=== PATIENT | male | born 1940 | race Caucasian/White ===

== ENCOUNTER → 2017-03-21 | Outpatient (CLI) | payer MEDICARE, OTHER ==
[2016-11-23 11:32] VITALS: BP 133/87
[~2017-03-21] MED LIST: AMLO5TAB2; ASPI81TA2; CALC300T5; CRESTOR5 MG; FURO-69 PO; LINA5TAB; MAGN71.5; MYCO360T; NEBI5TAB2; OMEP20CA9; TACR0.5C4; TACR1CAP4
[2017-03-21 22:06] LABS: UR PROTEIN 10.9 mg/dL (Not Estab.)
== END | disposition home or self-care (01) ==
LOC: SPEC 09:48
PROVIDERS: ATTEND Internal Medicine Nephrology
DX: N18.3 Chronic kidney disease, stage 3 (moderate) (principal); E11.21 Type 2 diabetes mellitus with diabetic nephropathy; R60.0 Localized edema; Z68.32 Body mass index [BMI] 32.0-32.9, adult
CPT/HCPCS: 36415; 84156

== ENCOUNTER 2017-10-30 12:38 | Emergency (ER) | payer MEDICARE, OTHER ==
[~2017-10-30] VITALS: Ht 167.6 cm; Wt 87.1 kg
[~2017-10-30 12:38] MED LIST changes: +ASPI-630; -ASPI81TA2; -LINA5TAB; +LINA5TAB4; +TACR0.5C20; -TACR0.5C4
--- NOTE | 2017-10-30 13:06 | PHYS DOC ---
Past History Past Medical History: Diabetes, GERD, High Cholesterol, Hypertension, Renal Failure Past Surgical History: Knee Replacement, Other Smoking: Non-smoker Alcohol Use: None Drug Use: None Adult General Chief Complaint Chief Complaint: TREMORS HPI HPI Patient is a [77] year old [male] who presents with complaining of shaking . 77-year-old male patient with history of kidney transplant in 2007 complaining of sudden onset of generalized shaking since 11 AM today without fever, nasal congestion, chest pain, shortness of breath, focal neuro deficit, nausea vomiting. Patient states he has had cold and cough for 2 weeks that gradually improved without taking any medication. Patient states he had history of the same shaking couple years ago and admitted to the hospital with diagnosis of sepsis. Review of Systems Review of Systems Constitutional: Denies fever, reports chills Eyes: Denies change in visual acuity, redness, or eye pain [] HENT: Denies nasal congestion or sore throat [] Respiratory: Denies cough or shortness of breath [] Cardiovascular: No additional information not addressed in HPI [] GI: Denies abdominal pain, nausea, vomiting, bloody stools or diarrhea [] : Denies dysuria or hematuria [] Musculoskeletal: Denies back pain or joint pain [] Integument: Denies rash or skin lesions [] Neurologic: Denies headache, focal weakness or sensory changes [] Endocrine: Denies polyuria or polydipsia [] All other systems were reviewed and found to be within normal limits, except as documented in this note. Allergies Allergies Allergies Coded Allergies Type Severity Reaction Last Updated Verified Penicillins Allergy Unknown 02/22/14 Yes promethazine HCl Allergy Unknown 02/22/14 Yes Physical Exam Physical Exam Constitutional: Mild distress, non-toxic appearance, afebrile, generalized fine shaking [] HENT: Normocephalic, atraumatic, bilateral external ears normal, oropharynx moist, no oral exudates, nose normal. [] Eyes: PERRLA, EOMI, conjunctiva normal, no discharge. [] Neck: Normal range of motion, no tenderness, supple, no stridor. [] Cardiovascular:Heart rate regular rhythm, no murmur [] Lungs & Thorax: Mild rhonchi in right basilar Abdomen: Bowel sounds normal, soft, no tenderness, no masses, no pulsatile masses. [] Skin: Warm, dry, no erythema, no rash. [] Back: No tenderness, no CVA tenderness. [] Extremities: No tenderness, no cyanosis, no clubbing, ROM intact, no edema. [] Neurologic: Alert and oriented X 3, normal motor function, normal sensory function, no focal deficits noted. [] Psychologic: Affect normal, judgement normal, mood normal. [] EKG EKG [EKG at 1316 showed normal sinus rhythm at rate of of 84, no ST and T-wave abnormality] Radiology/Procedures Radiology/Procedures [Chest x-ray showed early infiltration in RLL Course & Med Decision Making Course & Med Decision Making Pertinent Labs and Imaging studies reviewed. (See chart for details) [Evaluation of patient in ER showed 77 year old male patient with history of kidney transplant presented with shaking. Patient did not have] fever in several checking. Labs was unremarkable including lactic acid [facility] at 1445. For mild elevation of BUN/creatinine. Chest x-ray showed infiltration in RLL. Rocephin and Zithromax was started. Patient requested transferred to [facility] and transfer accepted to [facility] at 1445. Patient had stable vitals at the time of transfer. Dragon Disclaimer Dragon Disclaimer This electronic medical record was generated, in whole or in part, using a voice recognition dictation system. Departure Departure: Impression: Primary Impression: CAP (community acquired pneumonia) Additional Impressions: Renal insufficiency History of kidney transplant Disposition: 02 XFER SHT-TRM HOSP (at 1445 to [facility]) Condition: IMPROVED Referrals: DWAYNE ASENCIO MD (PCP) Problem Qualifiers TWILA ALBERT MD Oct 30, 2017 13:06
[2017-10-30 13:34] LABS: BASO % 0 % (0-3); EOS % 0 % (0-3); HEMATOCRIT 39.6 % (39.0-53.0); HEMOGLOBIN 13.2 g/dL (13.0-17.5); LYMPH # 0.6 x10^3/uL (1.0-4.8); LYMPH % 5 % (24-48); MEAN CORPUSCULAR HEMOGLOBIN 30 pg (25-35); MEAN CORPUSCULAR HGB CONC 33 g/dL (31-37); MEAN CORPUSCULAR VOLUME 91 fL (79-100); MONO # 0.7 x10^3/uL (0.0-1.1); MONO % 6 % (0-9); NEUT # 10.4 x10^3uL (1.8-7.7); NEUT % 89 % (31-73); PLATELET COUNT 237 x10^3/uL (140-400); RED BLOOD COUNT 4.35 x10^6/uL (4.30-5.70); RED CELL DISTRIBUTION WIDTH 15.2 % (11.5-14.5); WHITE BLOOD COUNT 11.7 x10^3/uL (4.0-11.0)
[2017-10-30 13:42] LABS: BACTERIA,URINE 0 /HPF (0-FEW); BILIRUBIN,URINE NEG (NEG); CLARITY,URINE CLEAR; COLOR,URINE STRAW; GLUCOSE,URINE NEG (NEG); NITRITE,URINE NEG (NEG); UROBILINOGEN,URINE 0.2 mg/dL (0.2 mg/dL); WBC,URINE OCC /HPF (0-4)
[2017-10-30 13:43] LABS: SQUAMOUS EPITHELIAL CELL,UR OCC /LPF
--- NOTE | 2017-10-30 13:48 | RAD ---
CHEST PA LATERAL Clinical Indication: Shaking, weakness. Comparison: January 22, 2014 Technique: Frontal and lateral views of the chest are obtained. Findings: Groundglass, right perihilar and infrahilar opacities are present. Remainder of the lungs are clear. No pleural effusion or pneumothorax is seen. Cardiomediastinal silhouette remains within normal limits of size. Atherosclerotic calcification of the aortic knob redemonstrated. Visualized osseous structures and overlying soft tissues demonstrate no acute interval change, with prominent glenohumeral degenerative changes present. IMPRESSION: Right hilar and infrahilar groundglass opacities, may represent early infiltrate.
[2017-10-30 13:54] LABS: ALBUMIN 3.7 g/dL (3.4-5.0); ALBUMIN/GLOBULIN RATIO 0.7 (1.0-1.7); CALCIUM 9.3 mg/dL (8.5-10.1); CREATININE 2.1 mg/dL (0.7-1.3); GFR 30.9; TOTAL PROTEIN 8.7 g/dL (6.4-8.2)
[2017-10-30 13:57] LABS: INFLUENZA A PATIENT NEGATIVE (NEGATIVE); INFLUENZA B PATIENT NEGATIVE (NEGATIVE)
[2017-10-30] MEDS ORDERED: AZITHROMYCIN 500 MG in IV NORMAL SALINE 250ML 250 ML IV ONE (14:15)
[2017-10-30] MEDS ORDERED: IV NORMAL SALINE 1,000ML 1,000 ML IV ONE (14:15)
[2017-10-30 14:24] VITALS: BP 129/70
[2017-10-30] MEDS ORDERED: IV NORMAL SALINE 50ML 50 ML ONE (14:26)
[2017-10-30] MEDS ORDERED: cefTRIAXone SODIUM 1 GM VIAL IV ONE (14:26)
[2017-10-30] MEDS ORDERED: IV NORMAL SALINE 250ML 250 ML ONE (15:04)
[2017-10-30] MEDS ORDERED: AZITHROMYCIN 500 MG VIAL. IV ONE (15:05)
--- NOTE | 2017-10-30 17:16 | EKG ---
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
== END 2017-10-30 15:45 | disposition short-term general hospital (02) ==
LOC: ER 12:38
DX: J18.9 Pneumonia, unspecified organism (principal); I12.9 Hypertensive chronic kidney disease with stage 1 through stage 4 chronic kidney disease, or unspecified chronic kidney disease; E11.22 Type 2 diabetes mellitus with diabetic chronic kidney disease; N18.9 Chronic kidney disease, unspecified; K21.9 Gastro-esophageal reflux disease without esophagitis; E78.00 Pure hypercholesterolemia, unspecified; Z94.0 Kidney transplant status; Z88.0 Allergy status to penicillin; Z88.8 Allergy status to other drugs, medicaments and biological substances
CPT/HCPCS: 36415; 71020; 80053; 81001; 83605; 83880; 84484; 85025; 85610; 87040; 87804; 93005; 96365; 96368; 99285; J0456; J0696; J7050; J7030

== ENCOUNTER → 2017-11-03 | Outpatient (CLI) | payer MEDICARE, OTHER ==
[2017-10-30 14:24] VITALS: BP 129/70
[2017-11-03 21:07] LABS: UR CREATININE RD 43.7 mg/dL (Not Estab.); UR PROTEIN RD 19.8 mg/dL (Not Estab.)
== END | disposition home or self-care (01) ==
LOC: LAB 06:01
PROVIDERS: ATTEND Transplant Surgery
DX: I12.9 Hypertensive chronic kidney disease with stage 1 through stage 4 chronic kidney disease, or unspecified chronic kidney disease (principal); E11.22 Type 2 diabetes mellitus with diabetic chronic kidney disease; N18.3 Chronic kidney disease, stage 3 (moderate); Z79.899 Other long term (current) drug therapy; Z94.0 Kidney transplant status
CPT/HCPCS: 36415; 80061; 82570; 84156

== ENCOUNTER → 2018-08-12 | Outpatient (CLI) | payer MEDICARE, OTHER ==
[~2018-08-12] MED LIST changes: -AMLO5TAB2; +AMLO5TAB7
[2018-08-12 06:51] LABS: ALBUMIN 3.2 g/dL (3.4-5.0); ALBUMIN/GLOBULIN RATIO 0.8 (1.0-1.7); CALCIUM 8.3 mg/dL (8.5-10.1); CREATININE 2.1 mg/dL (0.7-1.3); GFR 30.9; MAGNESIUM 1.8 mg/dL (1.8-2.4); PHOSPHORUS 3.9 mg/dL (2.6-4.7); POTASSIUM 3.7 mmol/L (3.5-5.1); TOTAL BILIRUBIN 0.7 mg/dL (0.2-1.0); TOTAL PROTEIN 7.4 g/dL (6.4-8.2)
[2018-08-12 06:58] LABS: BASO % 1 % (0-3); EOS # 0.2 x10^3/uL (0.0-0.7); EOS % 2 % (0-3); HEMATOCRIT 37.1 % (39.0-53.0); HEMOGLOBIN 12.2 g/dL (13.0-17.5); LYMPH # 1.4 x10^3/uL (1.0-4.8); LYMPH % 21 % (24-48); MEAN CORPUSCULAR HEMOGLOBIN 30 pg (25-35); MEAN CORPUSCULAR HGB CONC 33 g/dL (31-37); MEAN CORPUSCULAR VOLUME 91 fL (79-100); MONO # 0.6 x10^3/uL (0.0-1.1); MONO % 10 % (0-9); NEUT # 4.2 x10^3uL (1.8-7.7); NEUT % 66 % (31-73); PLATELET COUNT 241 x10^3/uL (140-400); RED BLOOD COUNT 4.06 x10^6/uL (4.30-5.70); RED CELL DISTRIBUTION WIDTH 15.2 % (11.5-14.5); WHITE BLOOD COUNT 6.4 x10^3/uL (4.0-11.0)
== END | disposition home or self-care (01) ==
LOC: LAB 06:04
PROVIDERS: ATTEND Transplant Surgery
DX: Z48.22 Encounter for aftercare following kidney transplant (principal); E83.40 Disorders of magnesium metabolism, unspecified; E83.30 Disorder of phosphorus metabolism, unspecified; E78.00 Pure hypercholesterolemia, unspecified; I12.9 Hypertensive chronic kidney disease with stage 1 through stage 4 chronic kidney disease, or unspecified chronic kidney disease; E11.22 Type 2 diabetes mellitus with diabetic chronic kidney disease; N18.3 Chronic kidney disease, stage 3 (moderate); K21.9 Gastro-esophageal reflux disease without esophagitis; Z94.0 Kidney transplant status; Z79.899 Other long term (current) drug therapy
CPT/HCPCS: 36415; 80053; 80197; 83615; 83735; 84100; 85025

== ENCOUNTER → 2018-10-26 | Outpatient (CLI) | payer MEDICARE, OTHER ==
[2018-10-26 06:59] LABS: ALBUMIN 3.1 g/dL (3.4-5.0); ALBUMIN/GLOBULIN RATIO 0.7 (1.0-1.7); CALCIUM 8.4 mg/dL (8.5-10.1); CREATININE 1.9 mg/dL (0.7-1.3); GFR 34.5; POTASSIUM 3.7 mmol/L (3.5-5.1); TOTAL BILIRUBIN 0.5 mg/dL (0.2-1.0); TOTAL PROTEIN 7.3 g/dL (6.4-8.2)
== END | disposition home or self-care (01) ==
LOC: LAB 06:04
PROVIDERS: ATTEND Nurse Practitioner
DX: E78.5 Hyperlipidemia, unspecified (principal)
CPT/HCPCS: 36415; 80053; 80061

== ENCOUNTER → 2019-03-22 | Outpatient (CLI) | payer MEDICARE, OTHER ==
[~2019-03-22] MED LIST changes: +AMLO5TAB10; -AMLO5TAB7
[2019-03-22 06:54] LABS: CALCIUM 8.8 mg/dL (8.5-10.1); CREATININE 2.1 mg/dL (0.7-1.3); GFR 30.8
== END | disposition home or self-care (01) ==
LOC: LAB 06:14
PROVIDERS: ATTEND Nurse Practitioner
DX: E78.5 Hyperlipidemia, unspecified (principal); R60.0 Localized edema
CPT/HCPCS: 36415; 80048; 83880

== ENCOUNTER → 2019-07-05 | Outpatient (CLI) | payer MEDICARE, OTHER ==
[~2019-07-05] MED LIST changes: +OMEP20CA10; -OMEP20CA9
[2019-07-05 06:22] LABS: CALCIUM 8.8 mg/dL (8.5-10.1); CREATININE 2.1 mg/dL (0.7-1.3); GFR 30.8; POTASSIUM 3.5 mmol/L (3.5-5.1)
[2019-07-05 07:11] LABS: BASO % 0 % (0-3); EOS # 0.2 x10^3/uL (0.0-0.7); EOS % 2 % (0-3); HEMATOCRIT 36.9 % (39.0-53.0); HEMOGLOBIN 11.9 g/dL (13.0-17.5); LYMPH # 0.9 x10^3/uL (1.0-4.8); LYMPH % 13 % (24-48); MEAN CORPUSCULAR HEMOGLOBIN 30 pg (25-35); MEAN CORPUSCULAR HGB CONC 32 g/dL (31-37); MEAN CORPUSCULAR VOLUME 92 fL (79-100); MONO # 0.7 x10^3/uL (0.0-1.1); MONO % 10 % (0-9); NEUT # 5.2 x10^3uL (1.8-7.7); NEUT % 74 % (31-73); PLATELET COUNT 214 x10^3/uL (140-400); RED BLOOD COUNT 4.02 x10^6/uL (4.30-5.70)
== END | disposition home or self-care (01) ==
LOC: LAB 05:56
PROVIDERS: ATTEND Internal Medicine
DX: T86.10 Unspecified complication of kidney transplant (principal); Z79.899 Other long term (current) drug therapy; Y83.0 Surgical operation with transplant of whole organ as the cause of abnormal reaction of the patient, or of later complication, without mention of misadventure at the time of the procedure
CPT/HCPCS: 36415; 80048; 80197; 85025

== ENCOUNTER 2019-10-07 20:46 | Emergency (ER) | payer MEDICARE, OTHER ==
[~2019-10-07] VITALS: Ht 167.6 cm; Wt 90.7 kg
[2019-10-07] MEDS ORDERED: DEXAMETHASONE SOD PHOS 4 MG/ML VIAL IVP ONE (21:30)
[2019-10-07 21:40] VITALS: BP 135/69
[2019-10-07 21:49] LABS: BASO % 1 % (0-3); EOS # 0.2 x10^3/uL (0.0-0.7); EOS % 3 % (0-3); HEMATOCRIT 35.4 % (39.0-53.0); HEMOGLOBIN 11.7 g/dL (13.0-17.5); LYMPH # 1.2 x10^3/uL (1.0-4.8); LYMPH % 15 % (24-48); MEAN CORPUSCULAR HEMOGLOBIN 30 pg (25-35); MEAN CORPUSCULAR HGB CONC 33 g/dL (31-37); MEAN CORPUSCULAR VOLUME 92 fL (79-100); MONO # 0.9 x10^3/uL (0.0-1.1); MONO % 11 % (0-9); NEUT # 5.7 x10^3uL (1.8-7.7); NEUT % 71 % (31-73); PLATELET COUNT 202 x10^3/uL (140-400); RED BLOOD COUNT 3.85 x10^6/uL (4.30-5.70); RED CELL DISTRIBUTION WIDTH 15.6 % (11.5-14.5); WHITE BLOOD COUNT 8.1 x10^3/uL (4.0-11.0)
[2019-10-07 22:33] LABS: ALBUMIN 3.1 g/dL (3.4-5.0); ALBUMIN/GLOBULIN RATIO 0.8 (1.0-1.7); C REACTIVE PROTEIN 4.6 mg/L (0-3.3); CALCIUM 7.9 mg/dL (8.5-10.1); CREATININE 2.1 mg/dL (0.7-1.3); GFR 30.7; MAGNESIUM 1.9 mg/dL (1.8-2.4); POTASSIUM 3.6 mmol/L (3.5-5.1); TOTAL BILIRUBIN 0.4 mg/dL (0.2-1.0); TOTAL PROTEIN 6.9 g/dL (6.4-8.2); URIC ACID 6.7 mg/dL (3.5-7.2)
[2019-10-07 22:54] LABS: SEDIMENTATION RATE 57 (0-15)
--- NOTE | 2019-10-07 22:54 | RAD ---
EXAM: 3 views right elbow DATE: 10/07/2019 9:13 PM INDICATION: Right elbow pain, no known injury. COMPARISON: No Prior FINDINGS/ IMPRESSION: 1. Moderate elbow joint effusion. 2. Right elbow joint osteoarthritis. 3. Decreased bone mineral density. 4. Mild soft tissue swelling overlying the olecranon. Electronically signed by: Jose Roberto Zimmer MD (10/07/2019 10:51 PM) [facility]
[2019-10-07] MEDS ORDERED: PRED20TA PO (23:05)
[2019-10-07] MEDS ORDERED: SENN-121 PO (23:05)
[2019-10-07] MEDS ORDERED: HYDR-3165 PO (23:05)
--- NOTE | 2019-10-07 23:06 | PHYS DOC ---
Past History Past Medical History: Diabetes, GERD, High Cholesterol, Hypertension, Renal Failure Past Surgical History: Knee Replacement, Other Additional Past Surgical Histo: KIDNEY TRANSPLANT Smoking: Quit Greater Than 1 Year Alcohol Use: None Drug Use: None Adult General Chief Complaint Chief Complaint: UPPER EXTREMITY PAIN HPI HPI 79-year-old male presents with 2 day history of right elbow pain. Patient repor ts has become worse over the last 2 hours. Patient denies known trauma. Reports he caused sling is using his arm. Reports concern for possible infectious process. Reports history of prior infections to bilateral arms which required surgical incision and debridement. Denies any fever or chills. Denies redness. Reports some swelling to right hand. Denies history of DVT. Denies chest pain. Reports taking Tylenol at 0800 this morning without significant improvement. Review of Systems Review of Systems Constitutional: Denies fever or chills Eyes: Denies redness or eye pain HENT: Denies nasal congestion or sore throat Respiratory: Denies cough or shortness of breath Cardiovascular: Denies chest pain or palpitations GI: Denies abdominal pain, nausea, or vomiting : Denies dysuria or hematuria Musculoskeletal: Reports right elbow pain; reports right hand swelling Integument: Denies rash or skin lesions Neurologic: Denies headache, focal weakness or sensory changes Complete systems were reviewed and found to be within normal limits, except as documented in this note. Current Medications Current Medications Current Medications Medications (Trade) Dose Ordered Sig/Zaki Start Time Stop Time Status Last Admin Dose Admin Dexamethasone Sodium Phosphate (Decadron) 10 mg 1X ONCE 10/07/19 21:30 10/07/19 21:31 DC 10/07/19 21:37 10 MG Fentanyl Citrate (Fentanyl 2ml Vial) 50 mcg 1X ONCE 10/07/19 22:30 10/07/19 22:31 DC 10/07/19 22:06 50 MCG Allergies Allergies Allergies Coded Allergies Type Severity Reaction Last Updated Verified Penicillins Allergy Unknown 02/22/14 Yes promethazine HCl Allergy Unknown 02/22/14 Yes Physical Exam Physical Exam Constitutional: Well developed, well nourished, uncomfortable, non-toxic appeara nce HENT: Normocephalic, atraumatic, oropharynx moist Eyes: Conjunctiva normal, no discharge Neck: Normal range of motion, no tenderness, supple Cardiovascular: Heart rate normal, regular rhythm Lungs & Thorax: Bilateral breath sounds clear to auscultation, no wheezing Skin: Warm, dry, no erythema, no rash Extremities: Right elbow tenderness and swelling to the olecranon, ROM diminished secondary to pain, trace edema to right hand, Refill less than 2 seconds, right radial pulses +2 Neurologic: Alert and oriented X 3, no focal deficits noted Psychologic: Affect normal, judgement normal, Current Patient Data Vital Signs Vital Signs Date Time Temp Pulse Resp B/P (MAP) Pulse Ox O2 Delivery O2 Flow Rate FiO2 10/07/19 21:40 83 20 135/69 (91) 97 Room Air 10/07/19 20:55 98.4 Lab Results Laboratory Tests Test 10/07/19 21:25 10/07/19 22:14 White Blood Count 8.1 x10^3/uL (4.0-11.0) Red Blood Count 3.85 x10^6/uL (4.30-5.70) L Hemoglobin 11.7 g/dL (13.0-17.5) L Hematocrit 35.4 % (39.0-53.0) L Mean Corpuscular Volume 92 fL (79-100) Mean Corpuscular Hemoglobin 30 pg (25-35) Mean Corpuscular Hemoglobin Concent 33 g/dL (31-37) Red Cell Distribution Width 15.6 % (11.5-14.5) H Platelet Count 202 x10^3/uL (140-400) Neutrophils (%) (Auto) 71 % (31-73) Lymphocytes (%) (Auto) 15 % (24-48) L Monocytes (%) (Auto) 11 % (0-9) H Eosinophils (%) (Auto) 3 % (0-3) Basophils (%) (Auto) 1 % (0-3) Neutrophils # (Auto) 5.7 x10^3uL (1.8-7.7) Lymphocytes # (Auto) 1.2 x10^3/uL (1.0-4.8) Monocytes # (Auto) 0.9 x10^3/uL (0.0-1.1) Eosinophils # (Auto) 0.2 x10^3/uL (0.0-0.7) Basophils # (Auto) 0.0 x10^3/uL (0.0-0.2) Erythrocyte Sedimentation Rate 57 (0-15) H Prothrombin Time 10.8 SEC (9.4-11.4) Prothrombin Time INR 1.0 (0.9-1.1) Activated Partial Thromboplast Time 28 SEC (23-33) Lactic Acid Level 0.7 mmol/L (0.4-2.0) Sodium Level 138 mmol/L (136-145) Potassium Level 3.6 mmol/L (3.5-5.1) Chloride Level 103 mmol/L (98-107) Carbon Dioxide Level 23 mmol/L (21-32) Anion Gap 12 (6-14) Blood Urea Nitrogen 36 mg/dL (8-26) H Creatinine 2.1 mg/dL (0.7-1.3) H Estimated GFR (Cockcroft-Gault) 30.7 BUN/Creatinine Ratio 17 (6-20) Glucose Level 222 mg/dL (70-99) H Uric Acid 6.7 mg/dL (3.5-7.2) Calcium Level 7.9 mg/dL (8.5-10.1) L Magnesium Level 1.9 mg/dL (1.8-2.4) Total Bilirubin 0.4 mg/dL (0.2-1.0) Aspartate Amino Transferase (AST) 15 U/L (15-37) Alanine Aminotransferase (ALT) 14 U/L (16-63) L Alkaline Phosphatase 86 U/L (46-116) C-Reactive Protein 4.6 mg/L (0-3.3) H Total Protein 6.9 g/dL (6.4-8.2) Albumin 3.1 g/dL (3.4-5.0) L Albumin/Globulin Ratio 0.8 (1.0-1.7) L EKG EKG [] Radiology/Procedures Radiology/Procedures PROCEDURE: VENOUS UPPER EXTREMITY RIGHT VENOUS UPPER EXTREMITY RIGHT History: Pain and swelling. Comparison: None. Procedure: Color flow Doppler, Doppler spectral analysis, and 2D images are obtained with and without compression in the jugular vein, subclavian vein, axillary vein, brachial vein, radial vein, ulnar vein, and basilic and cephalic veins. Findings: There is normal color flow, augmentation, and compressibility of all visualized vein segments. No evidence of deep venous thrombus is present. Irregular fluid collection adjacent to the elbow measures 4.2 x 1.6 x 2.4 cm. IMPRESSION: 1. No evidence of right upper extremity deep venous thrombosis. 2. Irregular nonspecific fluid collection within the soft tissues adjacent to the elbow. Recommend correlation for infection to exclude abscess. Electronically signed by: Zack Castro DO (10/07/2019 11:24 PM) [facility] [place] PROCEDURE: ELBOW RIGHT 3V EXAM: 3 views right elbow DATE: 10/07/2019 9:13 PM INDICATION: Right elbow pain, no known injury. COMPARISON: No Prior FINDINGS/ IMPRESSION: 1. Moderate elbow joint effusion. 2. Right elbow joint osteoarthritis. 3. Decreased bone mineral density. 4. Mild soft tissue swelling overlying the olecranon. Electronically signed by: Jose Roberto Zimmer MD (10/07/2019 10:51 PM) [facility] [place] Course & Med Decision Making Course & Med Decision Making Pertinent Labs and Imaging studies reviewed. (See chart for details) Patient presents with right elbow pain and swelling. X-ray obtained with findings consistent for joint effusion. Osteoarthritis also appreciated. Venous Doppler negative for DVT. Soft tissue swelling appreciated likely joint effusion. Labs obtained and posted to chart. WBC and lactic acid within normal limits. ESR and CRP elevated. Uric acid negative. Andrez bandages applied and sling provided. Pain addressed. Patient stable for discharge with outpatient follow-up with PCP/orthopedic surgeon. Orthopedic referral provided. Discussed findings and plan with patient and family, who acknowledge understanding and agreement. Dragon Disclaimer Dragon Disclaimer This electronic medical record was generated, in whole or in part, using a voice recognition dictation system. Splinting Splinting : Location: right elbow Pre-Made Type: Andrez bandage and sling Pre-Proc Neuro Vasc Exam: normal Post-Proc Neuro Vasc Exam: normal, unchanged from pre-exam Departure Departure: Impression: Primary Impression: Elbow pain, right Additional Impressions: Osteoarthritis Joint effusion of elbow Disposition: 01 HOME, SELF-CARE Condition: STABLE Referrals: DWAYNE ASENCIO MD (PCP) TANYA PAGAN MD Patient Instructions: Elbow Effusion-Brief, Osteoarthritis Scripts Hydrocodone Bit/Acetaminophen (NORCO 5-325 TABLET) 1 Each Tablet 0.5-1 TAB PO Q6HRS PRN for PAIN, #14 TAB Prov: MANUEL PORTER DO 10/07/19 Sennosides/Docusate Sodium (Colace 2-in-1 Tablet) 1 Each Tablet 1 TAB PO QHS PRN for CONSTIPATION, #30 TAB 0 Refills Prov: MANUEL PORTER DO 10/07/19 Prednisone (PREDNISONE) 20 Mg Tablet 2 TAB PO DAILY for Arthritis, #8 TAB Start this prescription tomorrow, Wednesday10/08/19 Prov: MANUEL PORTER DO 10/07/19 Problem Qualifiers Additional Impressions: Osteoarthritis Osteoarthritis location: elbow Osteoarthritis type: unspecified Laterality: right Qualified Codes: M19.021 - Primary osteoarthritis, right elbow Joint effusion of elbow Laterality: right Qualified Codes: M25.421 - Effusion, right elbow MANUEL PORTER DO Oct 07, 2019 23:05
--- NOTE | 2019-10-07 23:26 | RAD ---
VENOUS UPPER EXTREMITY RIGHT History: Pain and swelling. Comparison: None. Procedure: Color flow Doppler, Doppler spectral analysis, and 2D images are obtained with and without compression in the jugular vein, subclavian vein, axillary vein, brachial vein, radial vein, ulnar vein, and basilic and cephalic veins. Findings: There is normal color flow, augmentation, and compressibility of all visualized vein segments. No evidence of deep venous thrombus is present. Irregular fluid collection adjacent to the elbow measures 4.2 x 1.6 x 2.4 cm. IMPRESSION: 1. No evidence of right upper extremity deep venous thrombosis. 2. Irregular nonspecific fluid collection within the soft tissues adjacent to the elbow. Recommend correlation for infection to exclude abscess. Electronically signed by: Zack Castro DO (10/07/2019 11:24 PM) [facility]
[2019-10-07] MEDS ORDERED: HYDROcodone/APAP 5/325MG 1 TAB TABLET PO ONE (23:30)
== END 2019-10-07 23:20 | disposition home or self-care (01) ==
LOC: ER 20:46
DX: M19.021 Primary osteoarthritis, right elbow (principal); M25.421 Effusion, right elbow; E11.9 Type 2 diabetes mellitus without complications; K21.9 Gastro-esophageal reflux disease without esophagitis; E78.00 Pure hypercholesterolemia, unspecified; I10 Essential (primary) hypertension; Z87.891 Personal history of nicotine dependence; Z88.0 Allergy status to penicillin; Z88.8 Allergy status to other drugs, medicaments and biological substances
CPT/HCPCS: 36415; 73080; 80053; 83605; 83735; 84550; 85025; 85610; 85651; 85730; 86140; 93971; 96374; 96375; 96376; 99285; J1100; J3010

== ENCOUNTER → 2020-06-19 | Outpatient (CLI) | payer MEDICARE, OTHER ==
[~2020-06-19] MED LIST changes: +HYDR-3165 PO; -OMEP20CA10; +OMEP20CA16; +PRED20TA PO; +SENN-121 PO; -TACR1CAP4; +TACR1CAP5
[2020-06-19 06:33] LABS: BASO % 1 % (0-3); EOS # 0.2 x10^3/uL (0.0-0.7); EOS % 4 % (0-3); HEMATOCRIT 37.1 % (39.0-53.0); HEMOGLOBIN 12.2 g/dL (13.0-17.5); LYMPH # 1.1 x10^3/uL (1.0-4.8); LYMPH % 21 % (24-48); MEAN CORPUSCULAR HEMOGLOBIN 30 pg (25-35); MEAN CORPUSCULAR HGB CONC 33 g/dL (31-37); MEAN CORPUSCULAR VOLUME 93 fL (79-100); MONO # 0.5 x10^3/uL (0.0-1.1); MONO % 10 % (0-9); NEUT # 3.5 x10^3uL (1.8-7.7); NEUT % 66 % (31-73); PLATELET COUNT 193 x10^3/uL (140-400); RED BLOOD COUNT 4.01 x10^6/uL (4.30-5.70); RED CELL DISTRIBUTION WIDTH 15.2 % (11.5-14.5); WHITE BLOOD COUNT 5.3 x10^3/uL (4.0-11.0)
[2020-06-19 06:44] LABS: ALBUMIN 3.3 g/dL (3.4-5.0); ALBUMIN/GLOBULIN RATIO 0.8 (1.0-1.7); CALCIUM 8.6 mg/dL (8.5-10.1); CREATININE 2.2 mg/dL (0.7-1.3); GFR 29.1; MAGNESIUM 1.9 mg/dL (1.8-2.4); PHOSPHORUS 4.3 mg/dL (2.6-4.7); TOTAL BILIRUBIN 0.6 mg/dL (0.2-1.0); TOTAL PROTEIN 7.3 g/dL (6.4-8.2)
== END ==
LOC: LAB 06:10
PROVIDERS: ATTEND Internal Medicine
DX: E83.40 Disorders of magnesium metabolism, unspecified (principal); E83.30 Disorder of phosphorus metabolism, unspecified; Z94.0 Kidney transplant status; Z79.899 Other long term (current) drug therapy
CPT/HCPCS: 36415; 80053; 80197; 83615; 83735; 84100; 85025

== ENCOUNTER → 2020-08-09 | Outpatient (CLI) | payer MEDICARE, OTHER ==
[2020-08-09 07:27] LABS: BASO % 0 % (0-3); EOS # 0.2 x10^3/uL (0.0-0.7); EOS % 3 % (0-3); HEMATOCRIT 37.8 % (39.0-53.0); HEMOGLOBIN 12.3 g/dL (13.0-17.5); LYMPH # 0.9 x10^3/uL (1.0-4.8); LYMPH % 15 % (24-48); MEAN CORPUSCULAR HEMOGLOBIN 31 pg (25-35); MEAN CORPUSCULAR HGB CONC 33 g/dL (31-37); MEAN CORPUSCULAR VOLUME 94 fL (79-100); MONO # 0.5 x10^3/uL (0.0-1.1); MONO % 9 % (0-9); NEUT # 4.5 x10^3uL (1.8-7.7); NEUT % 73 % (31-73); PLATELET COUNT 195 x10^3/uL (140-400); RED BLOOD COUNT 4.03 x10^6/uL (4.30-5.70); RED CELL DISTRIBUTION WIDTH 15.3 % (11.5-14.5); WHITE BLOOD COUNT 6.2 x10^3/uL (4.0-11.0)
[2020-08-09 07:37] LABS: ALBUMIN 3.2 g/dL (3.4-5.0); ALBUMIN/GLOBULIN RATIO 0.8 (1.0-1.7); CALCIUM 8.6 mg/dL (8.5-10.1); CREATININE 1.9 mg/dL (0.7-1.3); GFR 34.5; PHOSPHORUS 3.5 mg/dL (2.6-4.7); POTASSIUM 4.1 mmol/L (3.5-5.1); TOTAL BILIRUBIN 0.6 mg/dL (0.2-1.0); TOTAL PROTEIN 7.2 g/dL (6.4-8.2)
== END | disposition home or self-care (01) ==
LOC: LAB 07:03
PROVIDERS: ATTEND Internal Medicine
DX: E83.30 Disorder of phosphorus metabolism, unspecified (principal); E83.40 Disorders of magnesium metabolism, unspecified; Z94.0 Kidney transplant status; Z79.899 Other long term (current) drug therapy
CPT/HCPCS: 80053; 80197; 83615; 83735; 84100; 85025

== ENCOUNTER → 2020-09-19 | Outpatient (CLI) | payer MEDICARE, OTHER ==
[~2020-09-19] MED LIST changes: +AMLO-186; -AMLO5TAB10
[2020-09-19 08:06] LABS: BASO % 0 % (0-3); EOS # 0.1 x10^3/uL (0.0-0.7); EOS % 2 % (0-3); HEMATOCRIT 39.2 % (39.0-53.0); HEMOGLOBIN 12.5 g/dL (13.0-17.5); LYMPH # 0.9 x10^3/uL (1.0-4.8); LYMPH % 15 % (24-48); MEAN CORPUSCULAR HEMOGLOBIN 30 pg (25-35); MEAN CORPUSCULAR HGB CONC 32 g/dL (31-37); MEAN CORPUSCULAR VOLUME 93 fL (79-100); MONO # 0.5 x10^3/uL (0.0-1.1); MONO % 9 % (0-9); NEUT # 4.3 x10^3uL (1.8-7.7); NEUT % 74 % (31-73); PLATELET COUNT 195 x10^3/uL (140-400); RED BLOOD COUNT 4.23 x10^6/uL (4.30-5.70); RED CELL DISTRIBUTION WIDTH 14.9 % (11.5-14.5); WHITE BLOOD COUNT 5.8 x10^3/uL (4.0-11.0)
[2020-09-19 08:18] LABS: ALBUMIN 3.5 g/dL (3.4-5.0); ALBUMIN/GLOBULIN RATIO 0.9 (1.0-1.7); CALCIUM 8.9 mg/dL (8.5-10.1); CREATININE 2.3 mg/dL (0.7-1.3); GFR 27.6; PHOSPHORUS 3.6 mg/dL (2.6-4.7); POTASSIUM 3.9 mmol/L (3.5-5.1); TOTAL BILIRUBIN 0.6 mg/dL (0.2-1.0); TOTAL PROTEIN 7.4 g/dL (6.4-8.2)
== END ==
LOC: LAB 07:27
PROVIDERS: ATTEND Internal Medicine
DX: E83.30 Disorder of phosphorus metabolism, unspecified (principal); Z79.899 Other long term (current) drug therapy; Z94.0 Kidney transplant status
CPT/HCPCS: 80053; 80197; 83615; 83735; 84100; 85025

== ENCOUNTER → 2020-10-07 | Outpatient (CLI) | payer MEDICARE, OTHER | LOC: LAB 07:12 | PROVIDERS: ATTEND Nurse Practitioner | DX: E78.5 Hyperlipidemia, unspecified (principal) | CPT/HCPCS: 80061 ==

== ENCOUNTER → 2020-10-07 | Outpatient (CLI) | payer MEDICARE, OTHER ==
[2020-10-07 09:42] LABS: ALBUMIN 3.3 g/dL (3.4-5.0); CALCIUM 8.8 mg/dL (8.5-10.1); GFR 32.4; MAGNESIUM 1.9 mg/dL (1.8-2.4); PHOSPHORUS 4.7 mg/dL (2.6-4.7); POTASSIUM 3.7 mmol/L (3.5-5.1)
== END ==
LOC: LAB 07:30
PROVIDERS: ATTEND Internal Medicine
DX: E11.29 Type 2 diabetes mellitus with other diabetic kidney complication (principal); I10 Essential (primary) hypertension; R60.0 Localized edema; Z94.0 Kidney transplant status; Z48.22 Encounter for aftercare following kidney transplant
CPT/HCPCS: 36415; 80069; 83735

== ENCOUNTER → 2020-10-07 | Outpatient (CLI) | payer MEDICARE, OTHER ==
[~2020-10-07] MED LIST changes: -AMLO-186; +AMLO-186 PO; +ATOR20TA58 PO; -CALC300T5; +CALC300T5 PO; +INSU100I13 SQ; -MAGN71.5; +MAGN71.5 PO; -MYCO360T; +MYCO360T PO; -NEBI5TAB2; +NEBI5TAB2 PO; -OMEP20CA16; +OMEP20CA16 PO; +PHOS250T PO; -TACR1CAP5; +TACR1CAP5 PO; +VIT1CAPS12 PO
[2020-10-07 08:05] LABS: ALBUMIN 3.2 g/dL (3.4-5.0); ALBUMIN/GLOBULIN RATIO 0.8 (1.0-1.7); CALCIUM 8.5 mg/dL (8.5-10.1); GFR 32.4; MAGNESIUM 1.7 mg/dL (1.8-2.4); PHOSPHORUS 4.5 mg/dL (2.6-4.7); POTASSIUM 3.6 mmol/L (3.5-5.1); TOTAL BILIRUBIN 0.5 mg/dL (0.2-1.0); TOTAL PROTEIN 7.1 g/dL (6.4-8.2)
[2020-10-07 09:44] LABS: BASO % 1 % (0-3); EOS # 0.2 x10^3/uL (0.0-0.7); EOS % 3 % (0-3); HEMOGLOBIN 11.7 g/dL (13.0-17.5); LYMPH # 0.8 x10^3/uL (1.0-4.8); LYMPH % 15 % (24-48); MEAN CORPUSCULAR HEMOGLOBIN 30 pg (25-35); MEAN CORPUSCULAR HGB CONC 32 g/dL (31-37); MEAN CORPUSCULAR VOLUME 93 fL (79-100); MONO # 0.6 x10^3/uL (0.0-1.1); MONO % 10 % (0-9); NEUT # 4.2 x10^3uL (1.8-7.7); NEUT % 72 % (31-73); PLATELET COUNT 207 x10^3/uL (140-400); RED BLOOD COUNT 3.87 x10^6/uL (4.30-5.70); RED CELL DISTRIBUTION WIDTH 15.4 % (11.5-14.5); WHITE BLOOD COUNT 5.8 x10^3/uL (4.0-11.0)
== END ==
LOC: LAB 07:07
PROVIDERS: ATTEND Internal Medicine
DX: E83.30 Disorder of phosphorus metabolism, unspecified (principal); E83.40 Disorders of magnesium metabolism, unspecified; Z79.899 Other long term (current) drug therapy; Z94.0 Kidney transplant status
CPT/HCPCS: 36415; 80053; 80061; 80069; 80197; 83615; 83735; 84100; 85025

== ENCOUNTER → 2020-11-15 | Outpatient (CLI) | payer MEDICARE, OTHER ==
[~2020-11-15] MED LIST changes: +AMLO-186; -AMLO-186 PO; -ATOR20TA58 PO; +CALC300T5; -CALC300T5 PO; -INSU100I13 SQ; +MAGN71.5; -MAGN71.5 PO; +MYCO360T; -MYCO360T PO; +NEBI5TAB2; -NEBI5TAB2 PO; +OMEP20CA16; -OMEP20CA16 PO; -PHOS250T PO; +TACR1CAP5; -TACR1CAP5 PO; -VIT1CAPS12 PO
[2020-11-15 07:46] LABS: BASO % 0 % (0-3); EOS % 0 % (0-3); HEMOGLOBIN 11.8 g/dL (13.0-17.5); LYMPH # 0.8 x10^3/uL (1.0-4.8); LYMPH % 20 % (24-48); MEAN CORPUSCULAR HEMOGLOBIN 30 pg (25-35); MEAN CORPUSCULAR HGB CONC 32 g/dL (31-37); MEAN CORPUSCULAR VOLUME 93 fL (79-100); MONO # 0.5 x10^3/uL (0.0-1.1); MONO % 11 % (0-9); NEUT # 2.9 x10^3uL (1.8-7.7); NEUT % 69 % (31-73); PLATELET COUNT 164 x10^3/uL (140-400); RED BLOOD COUNT 3.96 x10^6/uL (4.30-5.70); WHITE BLOOD COUNT 4.2 x10^3/uL (4.0-11.0)
[2020-11-15 07:57] LABS: ALBUMIN 3.1 g/dL (3.4-5.0); ALBUMIN/GLOBULIN RATIO 0.8 (1.0-1.7); CALCIUM 7.9 mg/dL (8.5-10.1); CREATININE 2.2 mg/dL (0.7-1.3); MAGNESIUM 1.7 mg/dL (1.8-2.4); PHOSPHORUS 3.2 mg/dL (2.6-4.7); POTASSIUM 3.5 mmol/L (3.5-5.1); TOTAL BILIRUBIN 0.8 mg/dL (0.2-1.0); TOTAL PROTEIN 7.2 g/dL (6.4-8.2)
[2020-11-15 19:40] LABS: CREATININE,RANDOM URINE 22.9 mg/dL (Not Establ.)
== END ==
LOC: LAB 07:10
PROVIDERS: ATTEND Internal Medicine
DX: E83.30 Disorder of phosphorus metabolism, unspecified (principal); E83.40 Disorders of magnesium metabolism, unspecified; Z94.0 Kidney transplant status; Z79.899 Other long term (current) drug therapy
CPT/HCPCS: 80053; 80061; 80197; 82570; 83615; 83735; 84100; 84156; 85025

== ENCOUNTER 2020-11-22 09:01 | Inpatient (IN) | payer MEDICARE, OTHER ==
[~2020-11-22] VITALS: Ht 167.6 cm; Wt 83.9 kg
[~2020-11-22 09:01] MED LIST changes: -AMLO-186; +AMLO-186 PO; -CALC300T5; +CALC300T5 PO; -MAGN71.5; +MAGN71.5 PO; -MYCO360T; +MYCO360T PO; -NEBI5TAB2; +NEBI5TAB2 PO; -OMEP20CA16; +OMEP20CA16 PO; -TACR1CAP5; +TACR1CAP5 PO
[2020-11-22 10:17] LABS: BASO % 0 % (0-3); EOS % 0 % (0-3); HEMATOCRIT 35.6 % (39.0-53.0); HEMOGLOBIN 11.6 g/dL (13.0-17.5); LYMPH # 0.4 x10^3/uL (1.0-4.8); LYMPH % 8 % (24-48); MEAN CORPUSCULAR HEMOGLOBIN 30 pg (25-35); MEAN CORPUSCULAR HGB CONC 33 g/dL (31-37); MEAN CORPUSCULAR VOLUME 91 fL (79-100); MONO # 0.5 x10^3/uL (0.0-1.1); MONO % 9 % (0-9); NEUT % 83 % (31-73); PLATELET COUNT 202 x10^3/uL (140-400); RED BLOOD COUNT 3.91 x10^6/uL (4.30-5.70); RED CELL DISTRIBUTION WIDTH 14.6 % (11.5-14.5); WHITE BLOOD COUNT 4.9 x10^3/uL (4.0-11.0)
--- NOTE | 2020-11-22 10:21 | PHYS DOC ---
Past History Past Medical History: Diabetes, GERD, High Cholesterol, Hypertension, Renal Failure Additional Past Medical Histor: Kidney disease Past Surgical History: Knee Replacement, Other Additional Past Surgical Histo: KIDNEY TRANSPLANT Smoking: Quit Greater Than 1 Year Alcohol Use: None Drug Use: None General Adult EDM: Chief Complaint: SYNCOPE HPI: HPI: 80-year-old male past medical history of diabetes hyperlipidemia presents for the evaluation after syncopal episode. Patient states he had 2 syncopal episodes earlier this morning. Patient states episodes were sudden in onset. Patient denies any preceding dizziness headache chest pain or shortness of breath. Patient does state his at home this past Wednesday with a respiratory illness. Patient is O2 saturation 87-88 on room air. Patient denies any chest pain or shortness of breath. He states he is has a chronic cough for years. He denies any fevers or chills. Review of Systems: Review of Systems: Constitutional: Denies fever or chills Eyes: Denies change in visual acuity HENT: Denies nasal congestion or sore throat Respiratory: Positive chronic cough denies shortness of breath Cardiovascular: Denies chest pain or edema denies palpitations GI: Denies abdominal pain, nausea, vomiting, bloody stools or diarrhea : Denies dysuria Musculoskeletal: Denies back pain or joint pain Integument: Denies rash Neurologic: Denies headache, focal weakness or sensory changes positive syncope Endocrine: Denies polyuria or polydipsia Lymphatic: Denies swollen glands Psychiatric: Denies depression or anxiety Allergies: Allergies: Allergies Coded Allergies Type Severity Reaction Last Updated Verified Penicillins Allergy Unknown 11/22/20 Yes promethazine HCl Allergy Unknown 11/22/20 Yes Physical Exam: PE: Constitutional: Well developed, well nourished, no acute distress, non-toxic appearance. [] HENT: Normocephalic, atraumatic, bilateral external ears normal, oropharynx moist, no oral exudates, nose normal. [] Eyes: PERRLA, EOMI, conjunctiva normal, no discharge. [] Neck: Normal range of motion, no tenderness, supple, no stridor. [] Cardiovascular:Heart rate regular rhythm, no murmur [] Lungs & Thorax: Bilateral breath sounds clear to auscultation [] Abdomen: Bowel sounds normal, soft, no tenderness, no masses, no pulsatile masses. [] Skin: Warm, dry, no erythema, no rash. [] Back: No tenderness, no CVA tenderness. [] Extremities: No tenderness, no cyanosis, no clubbing, ROM intact, no edema. [] Neurologic: Alert and oriented X 3, normal motor function, normal sensory function, no focal deficits noted. [] Psychologic: Affect normal, judgement normal, mood normal. [] Current Patient Data: Vital Signs: Vital Signs Date Time Temp Pulse Resp B/P (MAP) Pulse Ox O2 Delivery O2 Flow Rate FiO2 11/22/20 09:10 97.7 72 24 135/69 (91) 88 Room Air EKG: EKG: EKG taken at 930 hours heart rate [address] elevation no ST depression no acute MT [] Radiology/Procedures: Radiology/Procedures: [] Impressions: Scattered patchy airspace opacities identified bilateral lungs could be atelectasis or infiltrate or viral Covid pneumonia Heart Score: Risk Factors: Risk Factors: DM, Current or recent (<one month) smoker, HTN, HLP, family history of CAD, obesity. Risk Scores: Score 0 - 3: 2.5% MACE over next 6 weeks - Discharge Home Score 4 - 6: 20.3% MACE over next 6 weeks - Admit for Clinical Observation Score 7 - 10: 72.7% MACE over next 6 weeks - Early Invasive Strategies Course & Med Decision Making: Course & Med Decision Making Pertinent Labs and Imaging studies reviewed. (See chart for details) [] Patient was evaluated for chief complaint. Work-up consisted of laboratory analysis radiologic imaging and EKG. Results reviewed and discussed with patient. Patient's creatinine elevated greater than 2 but it is at his baseline. Patient's potassium noted to be 2.9. Potassium was replaced with 10 M EQ IV as well as 40 p.o. Chest x-ray consistent with scattered patchy airspace opacities. Treatment included Rocephin Zithromax and Decadron. Patient's initial oxygen saturation 8788 on room air. He was placed on 3 L nasal cannula with improvement of ox saturation 94-95%. Dragon Disclaimer: Dragon Disclaimer: This electronic medical record was generated, in whole or in part, using a voice recognition dictation system. Departure Departure: Impression: Primary Impression: Syncope and collapse Additional Impressions: Person under investigation for COVID-19 Hypokalemia Hypoxia CKD (chronic kidney disease) Admitting Physician: Brandon Benavides Condition: STABLE Referrals: DWAYNE ASENCIO MD (PCP) JESSICA NAGY DO Nov 22, 2020 10:21
[2020-11-22 10:29] LABS: ALBUMIN 2.6 g/dL (3.4-5.0); ALBUMIN/GLOBULIN RATIO 0.6 (1.0-1.7); CALCIUM 8.5 mg/dL (8.5-10.1); CREATININE 2.4 mg/dL (0.7-1.3); GFR 26.2; TOTAL PROTEIN 6.9 g/dL (6.4-8.2)
[2020-11-22 10:31] LABS: POTASSIUM 2.9 mmol/L (3.5-5.1)
[2020-11-22] MEDS ORDERED: POTASSIUM CHLORIDE 20 MEQ TABLET.ER. PO ONE (10:45)
--- NOTE | 2020-11-22 11:34 | RAD ---
EXAM: CHEST 1 VIEW History: Hypoxia COMPARISON: 10/30/2017 TECHNIQUE: Single portable radiograph of the chest FINDINGS: The cardiac silhouette is unremarkable. Scattered patchy airspace opacities identified in the bilateral lungs. The costophrenic sulci are clear and well demarcated. IMPRESSION: Scattered patchy airspace opacities identified in the bilateral lungs could be atelectas is or infiltrates or viral/ covid pneumonia. Electronically signed by: Peter Salter MD (11/22/2020 11:32 AM) [id number]
[2020-11-22] MEDS: POTASSIUM CHLORIDE 10MEQ 100 ML IV SCH ×2 (11:41→12:49)
--- NOTE | 2020-11-22 13:53 | EKG ---
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
--- NOTE | 2020-11-22 16:41 | NUR ---
The patient, PING WADDELL, 80 y/o, M admitted by NELLY BENAVIDES MD, was given written information regarding hospital policies, unit procedures and contact persons. Valuables were checked and recorded. Patient is alert and oriented X 4. Patient is on 3L NC with an oxygen sat of 93%. Patient is currently in bed with side rails up X 2, call light within reach. This RN will contact Dr. Benavides for orders. [facility] patient and implement orders received.
[2020-11-22 17:00] VITALS: BP 161/98
[2020-11-22] MEDS ORDERED: ATOR20TA58 PO (17:08)
[2020-11-22] MEDS ORDERED: VIT1CAPS12 PO (17:08)
[2020-11-22] MEDS ORDERED: INSU100I13 SQ (17:33)
[2020-11-22] MEDS ORDERED: PHOS250T PO (17:33)
[2020-11-22] MEDS ORDERED: TACR1CAP5 PO (17:53)
[2020-11-22 18:00] VITALS: BP 141/76
[2020-11-22] MEDS ORDERED: SENNOSIDES/DOCUSATE 8.6/50MG TABLET. PO PRN (18:00)
[2020-11-22] MEDS ORDERED: ALBUTEROL SULFATE 8GM INHALER. INH PRN (18:15)
[2020-11-22] MEDS ORDERED: DEXTROSE 50% 25 GM / 50ML DISP.SYRIN. IV PRN (19:00)
[2020-11-22] MEDS: DEXAMETHASONE SOD PHOS 4 MG/ML VIAL. IVP SCH (20:25)
[2020-11-22] MEDS: MULTIVITAMIN I-VITE TABLET. PO SCH (20:25)
[2020-11-22] MEDS: ATORVASTATIN CALCIUM 20 MG TABLET PO SCH (20:26)
[2020-11-22] MEDS: METOPROLOL TART IMMED RELEASE 50 MG TABLET PO SCH (20:26)
[2020-11-22] MEDS: MAGNESIUM CHLORIDE ER 64 MG TABLET.ER PO SCH (20:26)
[2020-11-22] MEDS: amLODIPine BESYLATE 5 MG TABLET PO SCH (20:26)
[2020-11-22] MEDS: CALCIUM CARBONATE 500 MG TAB.CHEW PO SCH (20:27)
[2020-11-22] MEDS: ENOXAPARIN 30 MG/0.3 ML SYRINGE. SQ SCH (20:27)
[2020-11-22 20:28] VITALS: BP 136/64
[2020-11-22] MEDS: MYCOPHENOLATE SODIUM 180 MG TABLET.DR PO SCH (20:28)
[2020-11-22] MEDS: IPRATROPIUM/ALBUTEROL 20/100mcg/INH INHALER. INH SCH (20:29)
[2020-11-22 21:00] VITALS: BP 133/79
[2020-11-22] MEDS: INSULIN GLARGINE SYRINGE. SQ SCH (21:00)
[2020-11-22] MEDS: AZITHROMYCIN 500 MG in IV NORMAL SALINE 250ML 250 ML IV SCH (21:51)
[2020-11-22] MEDS ORDERED: ACETAMINOPHEN 325 MG TABLET PO ONE (21:57)
[2020-11-22 22:00] VITALS: BP 136/87
[2020-11-22] MEDS ORDERED: ACETAMINOPHEN 325 MG TABLET PO PRN (22:15)
[2020-11-22 23:00] VITALS: BP_SYST 132; BP_SYST 142; BP_DIAS 78; BP_DIAS 82
[2020-11-23] VITALS (21 sets, daily range): BP systolic 103–156; BP diastolic 61–115
[2020-11-23 04:48] LABS: BASO % 0 % (0-3); EOS % 0 % (0-3); HEMATOCRIT 36.1 % (39.0-53.0); HEMOGLOBIN 11.7 g/dL (13.0-17.5); LYMPH # 0.4 x10^3/uL (1.0-4.8); LYMPH % 12 % (24-48); MEAN CORPUSCULAR HEMOGLOBIN 30 pg (25-35); MEAN CORPUSCULAR HGB CONC 33 g/dL (31-37); MEAN CORPUSCULAR VOLUME 92 fL (79-100); MONO # 0.1 x10^3/uL (0.0-1.1); MONO % 4 % (0-9); NEUT % 84 % (31-73); PLATELET COUNT 194 x10^3/uL (140-400); RED BLOOD COUNT 3.94 x10^6/uL (4.30-5.70); RED CELL DISTRIBUTION WIDTH 14.7 % (11.5-14.5); WHITE BLOOD COUNT 3.5 x10^3/uL (4.0-11.0)
[2020-11-23 05:21] LABS: ALBUMIN 2.4 g/dL (3.4-5.0); ALBUMIN/GLOBULIN RATIO 0.6 (1.0-1.7); CALCIUM 8.9 mg/dL (8.5-10.1); CREATININE 2.2 mg/dL (0.7-1.3); POTASSIUM 3.9 mmol/L (3.5-5.1); TOTAL BILIRUBIN 0.5 mg/dL (0.2-1.0); TOTAL PROTEIN 6.7 g/dL (6.4-8.2)
[2020-11-23] MEDS: TACROLIMUS 1 MG CAPSULE PO SCH ×2 (06:27→17:10)
--- NOTE | 2020-11-23 06:43 | NUR ---
Upon exertion pt's sats drop to 85% but rebound quickly. Pt's sats during the night are 88%-95% on 3 liters. Pt does not stay long in the 80's. Pt's heart rate is 50's when he is asleep. Call light at bedside. Will continue to monitor.
[2020-11-23] MEDS: DEXAMETHASONE SOD PHOS 4 MG/ML VIAL. IVP SCH ×2 (08:21→22:02)
[2020-11-23] MEDS: MULTIVITAMIN I-VITE TABLET. PO SCH ×2 (08:21→21:19)
[2020-11-23] MEDS: IPRATROPIUM/ALBUTEROL 20/100mcg/INH INHALER. INH SCH ×4 (08:21→19:51)
[2020-11-23] MEDS: METOPROLOL TART IMMED RELEASE 50 MG TABLET PO SCH ×2 (08:22→21:19)
[2020-11-23] MEDS: MYCOPHENOLATE SODIUM 180 MG TABLET.DR PO SCH ×2 (08:22→21:20)
[2020-11-23] MEDS: LINAGLIPTIN 5 MG TABLET PO SCH (08:22)
[2020-11-23] MEDS: CALCIUM CARBONATE 500 MG TAB.CHEW PO SCH ×2 (08:22→21:18)
[2020-11-23] MEDS: MAGNESIUM CHLORIDE ER 64 MG TABLET.ER PO SCH ×2 (08:22→21:19)
[2020-11-23] MEDS: ASPIRIN CHEWABLE 81 MG TABLET. PO SCH (08:23)
[2020-11-23] MEDS: [UNRECOGNIZED DRUG - OTHER] PO SCH ×2 (08:23→21:44)
[2020-11-23] MEDS ORDERED: FUROSEMIDE 80 MG TABLET PO SCH (09:00)
[2020-11-23] MEDS: LACTOBACILLUS RHAMNOSUS GG 1 CAPSULE. PO SCH ×2 (09:15→21:19)
--- NOTE | 2020-11-23 10:24 | HP ---
ADMIT DATE: 11/22/2020 ATTENDING PHYSICIAN: Dr. Ty. CHIEF COMPLAINT: Weakness and dizziness. HISTORY OF PRESENT ILLNESS: The patient is a 80-year-old gentleman who was admitted through the ED with vague symptoms of weakness. He had 2 near syncopal episode this morning, sudden onset, no preceding dizziness. His just this past Wednesday with respiratory illness at home. He has been taking care of her. He was found to have bilateral pneumonia. Oxygen saturation 87% on room air. Chest x-ray showed bilateral infiltrates. He is immunocompromised from taking antirejection medicine from a kidney transplant. He is admitted then with suspected COVID-19 pneumonia, bacterial pneumonia certainly could not be ruled out. He was given supplemental oxygen and empiric antibiotics. PAST MEDICAL HISTORY: Significant for the kidney transplant for renal failure, essential hypertension, hyperlipidemia, type 2 diabetes, and gastroesophageal reflux disease. ALLERGIES: HE HAS ALLERGIES TO PENICILLIN AND PROMETHAZINE. CURRENT MEDICATIONS: List included the following: He was taking Tylenol, albuterol, amlodipine, aspirin, Lipitor, calcium, Lasix, insulin Lantus, Tradjenta, magnesium, metoprolol, Protonix, and Prograf. He was on 20 mg of prednisone daily. He was given Decadron in the ED. SURGICAL HISTORY: Includes kidney transplant. SOCIAL HISTORY: He is a person under investigation. COVID-19 swabs pending. We assumed that his did pass away from COVID related issues. FAMILY HISTORY: His father of heart disease at age 70. Mom of unspecified cancer at age 74. REVIEW OF SYSTEMS: Significant for the recent of his . He is saddened. He is not overtly distressed, the was supposed to be tomorrow. He had been taking care of her. She has been chronically ill. No nausea, vomiting, or recent travel. All other systems reviewed and determined to be negative. PHYSICAL EXAMINATION: GENERAL: When I saw him, this is a pleasant elderly gentleman. INITIAL VITAL SIGNS: Showed a blood pressure of 128/75, pulse is 58 and regular. He was afebrile, oxygen saturation 95% on 3 liters nasal cannula. HEENT: Head is without trauma. Pupils are reactive. Sclerae nonicteric. Oropharynx is clear. NECK: Supple, no bruits identified. LUNGS: Coarse rhonchi at the bases. CARDIOVASCULAR: Showed regular heart tones. No gallops. ABDOMEN: Soft, no guarding or rebound tenderness. EXTREMITIES: Showed no cyanosis or edema. NEUROLOGIC: Focally intact. SKIN: Warm and dry. PERTINENT LABORATORY AND X-RAY STUDIES: Admission creatinine was 2.2 mg/dL. His sodium was 133 mEq, potassium 3.9, hemoglobin maintained at 11.7 grams with white count of 3500. Chest x-ray as noted bibasilar infiltrates. ASSESSMENT: 1. A 80-year-old gentleman with bilateral pneumonia, COVID-19 exposure is probable, rule out COVID-19 pneumonia. 2. Rule out community-acquired pneumonia. 3. The patient is a kidney transplant recipient, currently on antirejection medicine. 4. Chronic kidney disease, stage 3. 5. Essential hypertension. 6. Type 2 diabetes mellitus. 7. Hyperlipidemia. PLAN: 1. Admit to the ICU. 2. Empiric IV antibiotics. 3. Decadron. 4. Diabetic diet. 5. Continue Prograf. 6. I will hold his Lasix for now. 7. Serial chemistries. 8. Followup x-ray as needed. Prognosis is guarded at this time. NELLY TY MD DR: GENE/christine JOB#: [id number] / [id number]
[2020-11-23] MEDS: PANTOPRAZOLE 40 MG TABLET. PO SCH (10:28)
[2020-11-23] MEDS ORDERED: DEXTROSE 50% 25 GM / 50ML DISP.SYRIN. IV PRN (12:00)
[2020-11-23] MEDS: INSULIN LISPRO 300 UNITS/3 ML VIAL. SQ SCH ×2 (12:24→17:10)
[2020-11-23] MEDS: AZITHROMYCIN 500 MG in IV NORMAL SALINE 250ML 250 ML IV SCH (19:53)
[2020-11-23] MEDS ORDERED: TACROLIMUS 1 MG CAPSULE PO SCH (21:00)
[2020-11-23] MEDS: ENOXAPARIN 30 MG/0.3 ML SYRINGE. SQ SCH (21:18)
[2020-11-23] MEDS: amLODIPine BESYLATE 5 MG TABLET PO SCH (21:19)
[2020-11-23] MEDS: ATORVASTATIN CALCIUM 20 MG TABLET PO SCH (21:19)
[2020-11-23] MEDS: INSULIN GLARGINE SYRINGE. SQ SCH (21:44)
--- NOTE | 2020-11-23 23:21 | NUR ---
Nursing Note The patient has been calm, cooperative and pleasant this shift. The patient was appropriate during interactions with this nurse and was able to to answer all assessment questions. The patient discussed his recent loss of his with this nurse and stated that he would like to leave soon so he could attend her . The patients vitals have remained stable for most of this shift with his oxygen saturations occasionally dropping into the high 80's when exerting himself. The patients IV was very position dependent early in the shift but after this nurse adjusted the catheter the IV is patent and flows well. The patient remains on 4l o2. Lung sounds are clear/diminished. Bowels are active x4 and patient states that his last BM was today.
[2020-11-24] VITALS (9 sets, daily range): BP systolic 129–160; BP diastolic 79–89
[2020-11-24] MEDS: TACROLIMUS 1 MG CAPSULE PO SCH ×2 (06:13→18:32)
[2020-11-24] MEDS: IPRATROPIUM/ALBUTEROL 20/100mcg/INH INHALER. INH SCH ×4 (08:22→19:58)
[2020-11-24] MEDS: ASPIRIN CHEWABLE 81 MG TABLET. PO SCH (08:26)
[2020-11-24] MEDS: LACTOBACILLUS RHAMNOSUS GG 1 CAPSULE. PO SCH ×2 (08:26→19:58)
[2020-11-24] MEDS: DEXAMETHASONE SOD PHOS 4 MG/ML VIAL. IVP SCH (08:26)
[2020-11-24] MEDS: CALCIUM CARBONATE 500 MG TAB.CHEW PO SCH ×2 (08:29→20:00)
[2020-11-24] MEDS: METOPROLOL TART IMMED RELEASE 50 MG TABLET PO SCH ×2 (08:29→20:02)
[2020-11-24] MEDS: LINAGLIPTIN 5 MG TABLET PO SCH (08:29)
[2020-11-24] MEDS: MAGNESIUM CHLORIDE ER 64 MG TABLET.ER PO SCH ×2 (08:30→20:02)
[2020-11-24] MEDS: PANTOPRAZOLE 40 MG TABLET. PO SCH (08:30)
[2020-11-24] MEDS: MULTIVITAMIN I-VITE TABLET. PO SCH ×2 (08:30→20:02)
[2020-11-24] MEDS: [UNRECOGNIZED DRUG - OTHER] PO SCH ×2 (08:34→20:03)
[2020-11-24] MEDS: MYCOPHENOLATE SODIUM 180 MG TABLET.DR PO SCH ×2 (08:36→19:59)
[2020-11-24] MEDS: INSULIN LISPRO 300 UNITS/3 ML VIAL. SQ SCH ×3 (08:58→18:33)
--- NOTE | 2020-11-24 13:14 | PN ---
DATE: 11/24/2020 ATTENDING PHYSICIAN: Dr. Ty. SUBJECTIVE: He is alert, calm. He is texting on his phone, watching television. He has supplemental oxygen on. He denies any new dyspnea, shortness of breath, nausea or pain. OBJECTIVE FINDINGS: VITAL SIGNS: Blood pressure today is 129/81 mmHg, pulse of 71 and regular, oxygen saturation 94% on 4 liters. He is afebrile. HEENT: Head is without trauma. Pupils are reactive. Sclerae nonicteric. Oropharynx clear. NECK: Supple, no bruits identified. LUNGS: Coarse rhonchi with minimal wheezing. CARDIOVASCULAR: Showed distant heart tones, regular rhythm. No gallops. ABDOMEN: Soft, no guarding or rebound tenderness. Bowel sounds are normoactive. EXTREMITIES: Showed no cyanosis or edema. NEUROLOGIC: Findings focally intact. Speech is fluent. Bottle Cleaner intact. SKIN: Warm and dry. ASSESSMENT: 1. A 80-year-old gentleman with bibasilar pneumonia. 2. COVID-19 swab is still pending. 3. Community-acquired pneumonia. 4. Kidney transplant patient. 5. Chronic kidney disease, stage 3. 6. Hypertension, currently normotensive. 7. Type 2 diabetes, sugars are up, aggravated by steroids. PLAN: 1. Keep in ICU. 2. Continue empiric antibiotics. 3. Decadron as ordered. 4. Diabetic diet. 5. Continue Prograf. 6. Lasix has been held for now. 7. Serial chemistries. 8. Followup chest x-ray in next week. NELLY TY MD DR: GENE/christine JOB#: [id number] / [id number]
[2020-11-24] MEDS ORDERED: TEMAZEPAM 15 MG CAPSULE PO PRN (16:45)
[2020-11-24] MEDS ORDERED: REMDESIVIR LOAD in IV NORMAL SALINE 250ML TV IV ONE (17:00)
[2020-11-24] MEDS: amLODIPine BESYLATE 5 MG TABLET PO SCH (20:00)
[2020-11-24] MEDS: ATORVASTATIN CALCIUM 20 MG TABLET PO SCH (20:01)
[2020-11-24] MEDS: ENOXAPARIN 30 MG/0.3 ML SYRINGE. SQ SCH (20:04)
[2020-11-24] MEDS: INSULIN GLARGINE SYRINGE. SQ SCH (20:22)
[2020-11-24] MEDS: AZITHROMYCIN 500 MG in IV NORMAL SALINE 250ML 250 ML IV SCH (20:59)
[2020-11-25] VITALS (9 sets, daily range): BP systolic 129–165; BP diastolic 77–106
--- NOTE | 2020-11-25 03:08 | NUR ---
SpO2 levels dropping to 84% when patient falls asleep. HFNC was applied and titrated to 8L to maintain SpO2 90%
[2020-11-25] MEDS: IPRATROPIUM/ALBUTEROL 20/100mcg/INH INHALER. INH SCH ×2 (08:00→12:00)
[2020-11-25] MEDS: INSULIN LISPRO 300 UNITS/3 ML VIAL. SQ SCH ×2 (08:00→13:15)
[2020-11-25] MEDS ORDERED: DEXAMETHASONE SOD PHOS 4 MG/ML VIAL. IVP SCH (09:00)
[2020-11-25] MEDS: METOPROLOL TART IMMED RELEASE 50 MG TABLET PO SCH (09:00)
--- NOTE | 2020-11-25 10:38 | RAD ---
XR CHEST 1V Clinical Indication: Reason: INCREASED OXYGEN NEEDS Comparison: AP chest, 3 days ago. Findings: Atherosclerotic and tortuous thoracic aorta. Cardiac size probably normal.. Interval worsening of abel ateral patchy airspace opacities, most apparent in the right lung base. There is no pneumothorax. No pleural effusion is appreciated. There is severe arthropathy of the bilateral shoulders. IMPRESSION: Interval worsening of bilateral patchy airspace opacities. Electronically signed by: Jeet Lenz MD (11/25/2020 10:36 AM) [id number]
[2020-11-25] MEDS: TACROLIMUS 1 MG CAPSULE PO SCH (11:10)
[2020-11-25] MEDS: LACTOBACILLUS RHAMNOSUS GG 1 CAPSULE. PO SCH (11:12)
[2020-11-25] MEDS: MULTIVITAMIN I-VITE TABLET. PO SCH (11:12)
[2020-11-25] MEDS: ASPIRIN CHEWABLE 81 MG TABLET. PO SCH (11:12)
[2020-11-25] MEDS: [UNRECOGNIZED DRUG - OTHER] PO SCH (11:12)
[2020-11-25] MEDS: MAGNESIUM CHLORIDE ER 64 MG TABLET.ER PO SCH (11:13)
[2020-11-25] MEDS: MYCOPHENOLATE SODIUM 180 MG TABLET.DR PO SCH (11:14)
[2020-11-25] MEDS: PANTOPRAZOLE 40 MG TABLET. PO SCH (11:14)
[2020-11-25] MEDS: LINAGLIPTIN 5 MG TABLET PO SCH (11:14)
[2020-11-25] MEDS: CALCIUM CARBONATE 500 MG TAB.CHEW PO SCH (11:14)
[2020-11-25 12:40] LABS: BGAS PH 7.44 (7.35-7.46)
--- NOTE | 2020-11-25 15:31 | NUR ---
Over the course of the shift the patient had increased oxygen demands with and without exertion. Physician bedside to assess patient. Decision was made to transfer patient to higher level of care. Patient discharged at 1525 accompanied by EMS. Patient stable upon discharge from unit and accompanied with all patient belongings. Family notified of discharge from [facility].
[2020-11-25] MEDS ORDERED: REMDESIVIR 100mg in NORMAL SALINE 250ML X 4 DAYS IV SCH (17:00)
--- NOTE | 2020-11-25 18:54 | DS ---
DATE OF DISCHARGE: 11/25/2020 FINAL DISCHARGE DIAGNOSES: 1. COVID-19 pneumonia, bilateral. 2. Acute on chronic respiratory failure. 3. Kidney transplant patient with a kidney transplant 12 years ago. 4. Chronic kidney disease stage 3. 5. Chronic antirejection medication. 6. Essential hypertension. 7. Type 2 diabetes. 8. Hyperlipidemia. HISTORY AND PHYSICAL: This is a very pleasant 80-year-old gentleman has been caring for his late , she 10 days ago from the COVID-related illness. He presented with shortness of breath, dizziness, near syncope and chest x-ray evidence of bilateral pneumonia. He was admitted for further treatment and evaluation. He has chronic kidney failure with surgical kidney transplantation 12 years ago. He is on antirejection meds. He is also diabetic. PHYSICAL EXAMINATION: Please see the dictated note. PERTINENT LABORATORY AND X-RAY STUDIES: Admission chest x-ray showed scattered patchy airspace opacities in both lung woody. Unfortunately, repeat x-ray 3 days later showed a worsening of his infiltrates with extension of infiltrate throughout all lung woody. LABORATORY STUDIES: Arterial blood gases prior to discharge showed a pH of 7.44, pCO2 of 26 mmHg, and pO2 of 63 mmHg on 9 liters high flow oxygen. The hemoglobin was 11.6 g/dL with a white count of 4900. Chemistry panel is nonfasting blood sugar was in the low 200s. Admission creatinine was 2.2 mg/dL, BUN 38, potassium 3.9 mEq, nonfasting blood sugar 226. Transaminases within normal range. Cardiac enzymes negative for coronary ischemia. COURSE IN THE HOSPITAL: The patient was admitted. He was placed on coronavirus isolation. Diet was advanced. Diabetic regimen continued and his antirejection meds continued. When his COVID swab came back positive, we did elect to start him on remdesivir. He received initial loading dose. On the fourth hospital day, his clinical status worsens. We had to require to put more oxygen on board to maintain adequate saturations. He was dyspneic with minimal exertion and followup x-ray shows worsening of the infiltrates. Discussing with the patient and his daughter, he was agreeable to be transferred to [facility]. I spoke with Dr. Hermosillo. He is willing to accept the patient in transfer and hopefully we can get him treated and if he needs a higher level of care for critical care that would be available. Therefore, early on the fourth hospital day, he was transferred to [facility], Dr. Hermosillo is accepting physician. He will continue his amlodipine 5 mg daily, aspirin daily, Lipitor 20 mg daily, Tums p.r.n., Lasix 80 mg daily, hydrocodone p.r.n. regular and Lantus insulin, Tradjenta, mycophenolate 180 mg b.i.d., Bystolic 5 mg daily, omeprazole 20 mg daily, phosphorus daily, prednisone 20 mg 2 daily, senna daily, Prograf 3 mg daily with another 2 mg dose at bedtime, vitamin A, vitamin C and a copper supplement. He remains a full code. His prognosis is guarded. He was discharged from our hospital to be readmitted at [facility] for care of his COVID-19 pneumonia. TOTAL DISCHARGE TIME SPENT: 48 minutes. NELLY TY MD DR: GENE/christine JOB#: [id number] / [id number] SARAH Grey MD, LISA MD
--- NOTE | 2020-11-25 20:53 | PN ---
DATE: 11/25/2020 ATTENDING PHYSICIAN: Dr. Ty. SUBJECTIVE: The patient is more dyspneic with exertion. His oxygen requirement has gone up to 9 liters by nasal cannula at rest. OBJECTIVE FINDINGS: VITAL SIGNS: Chest x-ray ordered this morning is clinically worse. The infiltrates have extended and is more prominent bilaterally. Blood pressure is 140/82, oxygen saturations 91% on high flow nasal cannula 9 liters, temperature 98.1 degrees Fahrenheit. HEENT: Head is without trauma. Pupils are reactive. Sclerae nonicteric. Oropharynx is clear. NECK: Supple, no bruits. No stridor. LUNGS: Coarse rhonchi bilaterally with fairly good air movement so far. ABDOMEN: Soft. CARDIOVASCULAR: Showed regular heart tones. No gallops. NEUROLOGIC: Focally intact. No deficits. Speech is fluent. Card Assembler were intact and symmetrical. SKIN: Warm and dry. ASSESSMENT: 1. This 80-year-old gentleman has bilateral COVID-19 pneumonia. 2. Acute on chronic respiratory failure. 3. History of kidney transplant. 4. Chronic kidney disease, stage 3. 5. Hypertension. 6. Type 2 diabetes. 7. Chronic immunosuppression. PLAN: 1. Increased oxygen saturation. 2. Remdesivir was started yesterday, will be continued. 3. Because of his worsening status and x-ray, I feel that he needs to go to a higher level of care. I have talked with him and the family. He is agreeable to be transferred to [facility] where subspecialties and higher level of care are available. NELLY TY MD DR: GENE/christine JOB#: [id number] / [id number]
== END 2020-11-25 15:00 | disposition short-term general hospital (02) | DRG 177 ==
LOC: ER 09:01 → ICU 11:46
PROVIDERS: ADMIT Hospitalist; ATTEND Hospitalist
PROC: XW033E5 Introduction of Remdesivir Anti-infective into Peripheral Vein, Percutaneous Approach, New Technology Group 5 (ICD-10-PCS; principal; 2020-11-22)
PROC: 5A0935A Assistance with Respiratory Ventilation, Less than 24 Consecutive Hours, High Flow/Velocity Cannula (ICD-10-PCS; 2020-11-25)
DX: U07.1 COVID-19 (principal); J12.89 Other viral pneumonia; J96.21 Acute and chronic respiratory failure with hypoxia; D84.821 Immunodeficiency due to drugs; Z94.0 Kidney transplant status; E11.22 Type 2 diabetes mellitus with diabetic chronic kidney disease; E78.00 Pure hypercholesterolemia, unspecified; E78.5 Hyperlipidemia, unspecified; E87.6 Hypokalemia; I12.9 Hypertensive chronic kidney disease with stage 1 through stage 4 chronic kidney disease, or unspecified chronic kidney disease; N18.30 Chronic kidney disease, stage 3 unspecified; Z79.82 Long term (current) use of aspirin; Z79.899 Other long term (current) drug therapy; Z82.49 Family history of ischemic heart disease and other diseases of the circulatory system; Z87.891 Personal history of nicotine dependence; Z96.659 Presence of unspecified artificial knee joint; K21.9 Gastro-esophageal reflux disease without esophagitis; Z88.0 Allergy status to penicillin; Z88.8 Allergy status to other drugs, medicaments and biological substances
CPT/HCPCS: 36415; 36600; 71045; 80053; 82803; 82947; 83735; 84484; 85025; 93005; J0456; J0696; J1100; J1650; J1815; J3480; J7050; J7507; U0003; 99285-25

== ENCOUNTER → 2021-02-11 | Outpatient (CLI) | payer MEDICARE, OTHER ==
[2020-11-25 14:00] VITALS: BP 160/100
[~2021-02-11] MED LIST changes: +ATOR20TA58 PO; +INSU100I13 SQ; +PHOS250T PO; +VIT1CAPS12 PO
[2021-02-11 07:34] LABS: BASO % 1 % (0-3); EOS # 0.2 x10^3/uL (0.0-0.7); EOS % 4 % (0-3); HEMATOCRIT 34.4 % (39.0-53.0); HEMOGLOBIN 10.9 g/dL (13.0-17.5); LYMPH # 1.2 x10^3/uL (1.0-4.8); LYMPH % 21 % (24-48); MEAN CORPUSCULAR HEMOGLOBIN 30 pg (25-35); MEAN CORPUSCULAR HGB CONC 32 g/dL (31-37); MEAN CORPUSCULAR VOLUME 94 fL (79-100); MONO # 0.7 x10^3/uL (0.0-1.1); MONO % 12 % (0-9); NEUT # 3.6 x10^3uL (1.8-7.7); NEUT % 63 % (31-73); PLATELET COUNT 221 x10^3/uL (140-400); RED BLOOD COUNT 3.68 x10^6/uL (4.30-5.70); RED CELL DISTRIBUTION WIDTH 16.6 % (11.5-14.5); WHITE BLOOD COUNT 5.7 x10^3/uL (4.0-11.0)
[2021-02-11 08:00] LABS: ALBUMIN/GLOBULIN RATIO 0.8 (1.0-1.7); CALCIUM 8.3 mg/dL (8.5-10.1); CREATININE 2.2 mg/dL (0.7-1.3); MAGNESIUM 1.9 mg/dL (1.8-2.4); POTASSIUM 4.7 mmol/L (3.5-5.1); TOTAL BILIRUBIN 0.5 mg/dL (0.2-1.0); TOTAL PROTEIN 6.7 g/dL (6.4-8.2)
== END ==
LOC: LAB 07:09
PROVIDERS: ATTEND Internal Medicine
DX: Z79.899 Other long term (current) drug therapy (principal); Z94.0 Kidney transplant status
CPT/HCPCS: 80053; 80197; 83615; 83735; 84100; 85025

== ENCOUNTER → 2021-06-10 | Outpatient (CLI) | payer MEDICARE, OTHER ==
[2020-11-25 14:00] VITALS: BP 160/100
[2021-06-10 07:56] LABS: BASO % 1 % (0-3); EOS # 0.2 x10^3/uL (0.0-0.7); EOS % 3 % (0-3); HEMATOCRIT 37.7 % (39.0-53.0); HEMOGLOBIN 12.4 g/dL (13.0-17.5); LYMPH # 0.9 x10^3/uL (1.0-4.8); LYMPH % 15 % (24-48); MEAN CORPUSCULAR HEMOGLOBIN 30 pg (25-35); MEAN CORPUSCULAR HGB CONC 33 g/dL (31-37); MEAN CORPUSCULAR VOLUME 92 fL (79-100); MONO # 0.7 x10^3/uL (0.0-1.1); MONO % 11 % (0-9); NEUT # 4.4 x10^3uL (1.8-7.7); NEUT % 71 % (31-73); PLATELET COUNT 194 x10^3/uL (140-400); RED BLOOD COUNT 4.11 x10^6/uL (4.30-5.70); RED CELL DISTRIBUTION WIDTH 15.9 % (11.5-14.5); WHITE BLOOD COUNT 6.2 x10^3/uL (4.0-11.0)
[2021-06-10 08:13] LABS: ALBUMIN 3.4 g/dL (3.4-5.0); ALBUMIN/GLOBULIN RATIO 0.9 (1.0-1.7); CALCIUM 8.7 mg/dL (8.5-10.1); CREATININE 1.9 mg/dL (0.7-1.3); GFR 34.4; MAGNESIUM 2.2 mg/dL (1.8-2.4); PHOSPHORUS 3.5 mg/dL (2.6-4.7); POTASSIUM 3.9 mmol/L (3.5-5.1); TOTAL BILIRUBIN 0.7 mg/dL (0.2-1.0); TOTAL PROTEIN 7.1 g/dL (6.4-8.2)
== END ==
LOC: LAB 07:06
PROVIDERS: ATTEND Internal Medicine
DX: E83.30 Disorder of phosphorus metabolism, unspecified (principal); E83.40 Disorders of magnesium metabolism, unspecified; Z94.0 Kidney transplant status; Z79.899 Other long term (current) drug therapy
CPT/HCPCS: 80053; 80197; 83615; 83735; 84100; 85025

== ENCOUNTER → 2021-07-07 | Outpatient (CLI) | payer MEDICARE, OTHER ==
[2020-11-25 14:00] VITALS: BP 160/100
== END ==
LOC: LAB 07:36
PROVIDERS: ATTEND Nurse Practitioner
DX: E78.5 Hyperlipidemia, unspecified (principal); E78.00 Pure hypercholesterolemia, unspecified
CPT/HCPCS: 80061

== ENCOUNTER → 2021-07-07 | Outpatient (CLI) | payer MEDICARE, OTHER ==
[2020-11-25 14:00] VITALS: BP 160/100
[2021-07-07 08:21] LABS: BASO % 1 % (0-3); EOS # 0.2 x10^3/uL (0.0-0.7); EOS % 4 % (0-3); HEMOGLOBIN 12.6 g/dL (13.0-17.5); LYMPH % 17 % (24-48); MEAN CORPUSCULAR HEMOGLOBIN 30 pg (25-35); MEAN CORPUSCULAR HGB CONC 32 g/dL (31-37); MEAN CORPUSCULAR VOLUME 94 fL (79-100); MONO # 0.5 x10^3/uL (0.0-1.1); MONO % 9 % (0-9); NEUT # 4.1 x10^3uL (1.8-7.7); NEUT % 70 % (31-73); PLATELET COUNT 217 x10^3/uL (140-400); RED BLOOD COUNT 4.15 x10^6/uL (4.30-5.70); RED CELL DISTRIBUTION WIDTH 15.8 % (11.5-14.5); WHITE BLOOD COUNT 5.9 x10^3/uL (4.0-11.0)
[2021-07-07 08:34] LABS: ALBUMIN 3.5 g/dL (3.4-5.0); ALBUMIN/GLOBULIN RATIO 0.9 (1.0-1.7); CALCIUM 8.7 mg/dL (8.5-10.1); CREATININE 1.8 mg/dL (0.7-1.3); GFR 36.6; MAGNESIUM 2.2 mg/dL (1.8-2.4); POTASSIUM 4.4 mmol/L (3.5-5.1); TOTAL BILIRUBIN 0.6 mg/dL (0.2-1.0); TOTAL PROTEIN 7.4 g/dL (6.4-8.2)
== END ==
LOC: LAB 07:41
PROVIDERS: ATTEND Internal Medicine
DX: E83.30 Disorder of phosphorus metabolism, unspecified (principal); E83.40 Disorders of magnesium metabolism, unspecified; Z79.899 Other long term (current) drug therapy; Z94.0 Kidney transplant status
CPT/HCPCS: 36415; 80053; 80197; 83615; 83735; 84100; 85025

== ENCOUNTER → 2021-09-05 | Outpatient (CLI) | payer MEDICARE, OTHER ==
[2020-11-25 14:00] VITALS: BP 160/100
[2021-09-05 07:33] LABS: ALBUMIN 3.4 g/dL (3.4-5.0); ALBUMIN/GLOBULIN RATIO 0.9 (1.0-1.7); BASO % 1 % (0-3); CALCIUM 8.7 mg/dL (8.5-10.1); EOS # 0.2 x10^3/uL (0.0-0.7); EOS % 3 % (0-3); GFR 32.3; HEMATOCRIT 37.4 % (39.0-53.0); HEMOGLOBIN 12.1 g/dL (13.0-17.5); LYMPH # 1.1 x10^3/uL (1.0-4.8); LYMPH % 12 % (24-48); MAGNESIUM 2.1 mg/dL (1.8-2.4); MEAN CORPUSCULAR HEMOGLOBIN 30 pg (25-35); MEAN CORPUSCULAR HGB CONC 33 g/dL (31-37); MEAN CORPUSCULAR VOLUME 94 fL (79-100); MONO # 0.8 x10^3/uL (0.0-1.1); MONO % 9 % (0-9); NEUT # 6.7 x10^3uL (1.8-7.7); NEUT % 75 % (31-73); PHOSPHORUS 3.1 mg/dL (2.6-4.7); PLATELET COUNT 210 x10^3/uL (140-400); POTASSIUM 3.6 mmol/L (3.5-5.1); RED BLOOD COUNT 3.99 x10^6/uL (4.30-5.70); RED CELL DISTRIBUTION WIDTH 14.8 % (11.5-14.5); TOTAL BILIRUBIN 0.7 mg/dL (0.2-1.0); TOTAL PROTEIN 7.3 g/dL (6.4-8.2)
== END ==
LOC: LAB 08-28 07:16
PROVIDERS: ATTEND Internal Medicine
DX: E83.30 Disorder of phosphorus metabolism, unspecified (principal); E83.40 Disorders of magnesium metabolism, unspecified; Z94.0 Kidney transplant status; Z79.899 Other long term (current) drug therapy
CPT/HCPCS: 80053; 80197; 83615; 83735; 84100; 85025

== ENCOUNTER 2021-09-07 07:20 | Emergency (ER) | payer MEDICARE, OTHER ==
[~2021-09-07] VITALS: Ht 165.1 cm; Wt 86.6 kg
--- NOTE | 2021-09-07 07:37 | PHYS DOC ---
Past History Past Medical History: Diabetes, GERD, High Cholesterol, Hypertension, Renal Failure Additional Past Medical Histor: Kidney disease Past Surgical History: Knee Replacement, Other Additional Past Surgical Histo: KIDNEY TRANSPLANT Smoking: Quit Greater Than 1 Year Alcohol Use: None Drug Use: None General Adult EDM: Chief Complaint: LACERATION/AVULSION HPI: HPI: 81 yo M PMH NIDDM, DM, CLD w/kidney transplant 12 years ago, HTN, HLD and h/o covid19 10/2020, presents to the ED (driven by son on law), (patient consents to his/her/their knowledge and involvement in pts' medical care), complains of cuts to his chin. States he was having a dream that he tripped over a wire, woke up on his thin carpeted bedroom floor. Is not on any anticoagulants. Denies any alcohol or drug use. Believes his tetanus shot was over 30 years ago. Is unsure what he hit his chin on-possible nightstand. Denies any recent head injury. Reports history of chronic right shoulder pain. Review of Systems: Review of Systems: Constitutional: Denies fever or chills Eyes: Denies change in visual acuity HENT: Denies nasal congestion or sore throat Respiratory: Denies cough or shortness of breath Cardiovascular: Denies chest pain or edema GI: Denies abdominal pain, nausea, vomiting, diarrhea : Denies saddle anesthesia or incontinence Musculoskeletal: Denies midline back pain or joint pain Integument: Denies rash or diaphoresis Neurologic: Denies headache, midline neck pain, focal weakness or sensory changes Endocrine: Denies polyuria or polydipsia Lymphatic: Denies swollen glands Psychiatric: Denies depression or anxiety Current Medications: Current Meds: Current Medications Medications (Trade) Dose Ordered Sig/Zaki Start Time Stop Time Status Last Admin Dose Admin Sodium Chloride 1,000 ml @ 1,000 mls/hr Q1H 09/07/21 07:45 09/07/21 08:44 UNV Allergies: Allergies: Allergies Coded Allergies Type Severity Reaction Last Updated Verified Penicillins Allergy Unknown 11/22/20 Yes promethazine HCl Allergy Unknown 11/22/20 Yes Physical Exam: PE: Constitutional: Well developed, well nourished, no acute distress, non-toxic appearance. HENT:1cm laceration to chin with minimal bleeding w/surrounding ecchymosis, no raccoon eyes, no septal hematoma, no hemotympanum bilaterally, Eyes: PERRLA, EOMI, conjunctiva normal, no discharge. Neck: Normal range of motion, supple, Nexus C-spine criteria are negative: There is no post midline tenderness, the patient is not intoxicated, there is a normal level of alertness, there are no focal neurologic deficits and there are no distracting injurie, Cardiovascular: S1/2 present, regular rhythm Lungs & Thorax: Speaking in full sentences, bilateral equal chest rise, no tachypnea or increased work of breathing Abdomen: soft, no tenderness, no hip pain, Skin: Warm, dry, Back: No midline step offs or tenderness, no CVA tenderness. [] Extremities: No tenderness, no cyanosis, no lower extremity edema, small 1cm abrasion over proximal left leg-no associated knee pain (has h/o bl knee replacements w/vertical scars), scars over both distal dorsal wrists-reports "infectious disease that if went to my heart I would have " Neurologic: NIHSS0, GCS 15, Alert and oriented X 3, normal motor function, normal sensory function, no focal deficits noted, steady gait Psychologic: Affect normal, judgement normal, mood cristiana-calm/smiling/tells stories EKG: EKG: Sinus rhythm 63 bpm, no axis deviation, NE interval 222, T wave inversion lead III, no ST elevation or ST depression, no active chest pain Radiology/Procedures: Radiology/Procedures: []IMAGING REPORT Signed [id number] : 1940 LOCATION: ER AGE: 81 SEX: M EXAM STATUS: REG ER ORD. PHYSICIAN: NANO SKELTON DO REASON: chin laceration PROCEDURE: CT HEAD AND CERVICAL SPINE WO EXAM: Head CT without contrast; maxillofacial bone CT without contrast; cervical spine CT without contrast. HISTORY: Laceration. TECHNIQUE: Computed tomographic images of the head, maxillofacial bones and cervical spine were obtained without contrast. *One or more of the following individualized dose reduction techniques were utilized for this examination: 1. Automated exposure control. 2. Adjustment of the mA and/or kV according to patient size. 3. Use of iterative reconstruction technique. COMPARISON: None. FINDINGS: Head: There is a small acute subdural hematoma along the left cerebral convexity measuring 3 mm in maximum thickness. There is increased density within the anterior right frontal extra-axial space and a single image due to a suspected prominent cortical vessel rather than subdural hematoma. There is also increased density along the falx and right tentorium which is likely physiologic rather than due to a subdural hematoma. There is no mass effect or midline shift. There is no hydrocephalus. There are subtle areas of hypodensity within the cerebral white matter, likely due to chronic small vessel disease. There is cerebral volume loss. The mastoid air cells are clear. No suspicious calvarial lesion is seen. There are few small osseous hemangiomas. No displaced maxillofacial bone fracture is seen. There are small left greater than right maxillary sinus mucous retention cysts superimposed on maxillary sinus mucosal thickening. There is evidence of lens surgery. The ostiomeatal units are patent. There is leftward nasal septal deviation. There are multiple missing teeth and dental restorations. Cervical spine: There is cervical kyphosis and multilevel degenerative listhesis. There is degenerative endplate remodeling with disc space narrowing, osteophytosis and Schmorl's node formation primarily at C5-C6. There is multilevel facet arthropathy. No acute or subacute fracture is seen. There is no suspicious osseous lesion. At C2-C3, there is a shallow posterior central disc protrusion superimposed on endplate remodeling. There is severe right facet arthropathy. There is minimal right foraminal stenosis. At C3-C4, there is a and shallow broad-based right paracentral to lateral recess disc protrusion superimposed on a disc bulge and endplate remodeling. There is moderate right and severe left facet arthropathy. There is bilateral uncovertebral arthropathy. There is mild bilateral foraminal stenosis. At C4-C5, there is a disc bulge and endplate remodeling. There is mild right and severe left facet arthropathy. There is left uncovertebral arthropathy. There is moderate left foraminal stenosis. At C5-C6, there is a disc bulge and endplate osteophytosis. There is mild bilateral facet arthropathy. There is bilateral uncovertebral arthropathy. There is severe right and moderate left foraminal stenosis. At C6-C7, there is a disc bulge and endplate osteophytosis. There is mild bilateral facet arthropathy. There is bilateral uncovertebral arthropathy. There is moderate right foraminal stenosis. There is a calcified aortic arch and there are tortuous atherosclerotic arch great vessels. There is groundglass opacities scattered throughout the bilateral upper lobes. There is no neck lymphadenopathy. IMPRESSION: 1. Small acute subdural hematoma along the left cerebral convexity measuring 3 mm in thickness. There is no midline shift. 2. Slight hyperdensity within the right frontal extra-axial space likely due to a prominent cortical vessel and slight increased density along the falx and right tentorium likely due to prominent dural venous sinuses. No additional convincing acute extra-axial hematoma is seen. 3. Bilateral cerebral white changes, likely due to chronic small vessel disease. 4. Multilevel degenerative change involving the cervical and upper thoracic spine, described above. This results in stenosis at multiple levels. There is no evidence of acute cervical trauma. 5. No evidence of acute maxillofacial bone trauma. Findings were discussed with Dr. Skelton in the ED at 0826 hours on 09/07/2021. FOR INTERNAL CODING PURPOSES RESULT CODE: (C) Electronically signed by: Mague Wiseman MD (09/07/2021 8:29 AM) [id number] DICTATED AND SIGNED BY: MAGUE WISEMAN MD DATE: 09/07/21809 CC: DWAYNE ASENCIO MD; NANO SKELTON DO ~MTH0 0 Heart Score: C/O Chest Pain: No Risk Factors: Risk Factors: DM, Current or recent (<one month) smoker, HTN, HLP, family history of CAD, obesity. Risk Scores: Score 0 - 3: 2.5% MACE over next 6 weeks - Discharge Home Score 4 - 6: 20.3% MACE over next 6 weeks - Admit for Clinical Observation Score 7 - 10: 72.7% MACE over next 6 weeks - Early Invasive Strategies Course & Med Decision Making: Course & Med Decision Making Pertinent Labs and Imaging studies reviewed. (See chart for details) Concern for left subdural hematoma, 3 mm with no midline shift, and small chin laceration. On re-evaluation, pt with with steady gait and unchanged neurologic exam. Chin laceration already scabbed over-I offered sutures on initial exam but not necessary on repeat exam which pt agrees with (daughter present at bedside for this conversation, (patient consents to his/her/their knowledge and involvement in pts' medical care). I spoke to currently with Dr. Bustamante, neurosurgery who recommends transfer to [place] with neurologic checks and repeat CT scan in the morning or if patient's mental status or neurologic status should change. Patient accepted by Dr. Case for further medical management. Daughter and patient requested to be transferred to or [facility] but both of these hospitals are full with no hospital beds, on high volume. They are in agreement for [facility]. Patient stable at time of transfer and agrees with this plan. I have spoken with the patient and/or caregivers. I have explained the patient's condition, diagnosis and treatment plan based on the information available to me at this time. I have answered the patient's and/or caregivers questions and answered any concerns. The patient and/or caregivers have as good an understanding of the patient's diagnosis, condition and treatment plan as can be expected at this point. The patient has been stabilized within the capability of the emergency department. The patient will be transported for further care and management or will be moved to an observation or inpatient service. I have communicated with the staff or medical practitioner taking over this patient's care. Critical Care: Authorized and Performed by: Nano Skelton DO Total critical care time: approximately 90 minutes Due to a high probability of clinically significant, life threatening deterioration, the patient required my highest level of preparedness to intervene emergently and I personally spent this critical care time directly and personally managing the patient. This critical care time included obtaining a history; examining the patient; pulse oximetry; ventilator management if necessary; ordering and review of studies; arranging urgent treatment with development of a management plan; evaluation of patient's response to treatment; frequent reassessment; discussion with patient/family; and, discussions with other providers. This critical care time was performed to assess and manage the high probability of imminent, life-threatening deterioration that could result in multi-organ failure. It was exclusive of separately billable procedures and treating other patients and teaching time. Please see MDM section and the rest of the note for further information on patient assessment and treatment. Dragon Disclaimer: Dragon Disclaimer: This electronic medical record was generated, in whole or in part, using a voice recognition dictation system. Departure Departure: Impression: Primary Impression: Subdural hematoma, acute Additional Impressions: Laceration of chin without complication Fall Disposition: 02 SHORT TERM HOSPITAL (to [facility], accepted by Dr. Case) Condition: CRITICAL Referrals: DWAYNE ASENCIO MD (PCP) NANO TORIBIO DO Sep 07, 2021 07:37
[2021-09-07] MEDS ORDERED: IV NORMAL SALINE 1,000ML 1,000 ML IV SCH (07:45)
[2021-09-07] MEDS ORDERED: LIDOCAINE 1% Multi-Dose 20 ML VIAL. IJ ONE (08:00)
[2021-09-07] MEDS ORDERED: NEOMY/BACITR/POLYMYXIN OINT PACKET. TP ONE (08:00)
--- NOTE | 2021-09-07 08:14 | RAD ---
EXAM: CHEST ONE VIEW. HISTORY: Fall. COMPARISON: 11/25/2020. FINDINGS: A frontal view of the chest is obtained. Previously noted bilateral diffuse infiltrates have improved. There are residual interstitial infiltr ates in the bases. Prominence of the superior mediastinum is stable and secondary to tortuous vascula ture. Eventration of the right hemidiaphragm is stable. There is no pneumothorax or pleural effusion. The heart is not enlarged. The aorta is calcified and tortuous. IMPRESSION: 1. Mild bibasilar interstitial infiltrates. Correlate for atypical pneumonia or interstitial lung dis ease. Electronically signed by: Elmo Babcock MD (09/07/2021 8:11 AM) [id number]
--- NOTE | 2021-09-07 08:31 | RAD ---
EXAM: Head CT without contrast; maxillofacial bone CT without contrast; cervical spine CT without con trast. HISTORY: Laceration. TECHNIQUE: Computed tomographic images of the head, maxillofacial bones and cervical spine were obtai brianna without contrast. *One or more of the following individualized dose reduction techniques were utilized for this examina tion: 1. Automated exposure control. 2. Adjustment of the mA and/or kV according to patient size. 3. Use of iterative reconstruction technique. COMPARISON: None. FINDINGS: Head: There is a small acute subdural hematoma along the left cerebral convexity measuring 3 mm in ma ximum thickness. There is increased density within the anterior right frontal extra-axial space and a single image due to a suspected prominent cortical vessel rather than subdural hematoma. There is al so increased density along the falx and right tentorium which is likely physiologic rather than due t o a subdural hematoma. There is no mass effect or midline shift. There is no hydrocephalus. There are subtle areas of hypode nsity within the cerebral white matter, likely due to chronic small vessel disease. There is cerebral volume loss. The mastoid air cells are clear. No suspicious calvarial lesion is seen. There are few small osseous hemangiomas. No displaced maxillofacial bone fracture is seen. There are small left greater than right maxillary s inus mucous retention cysts superimposed on maxillary sinus mucosal thickening. There is evidence of lens surgery. The ostiomeatal units are patent. There is leftward nasal septal deviation. There are m ultiple missing teeth and dental restorations. Cervical spine: There is cervical kyphosis and multilevel degenerative listhesis. There is degenerati ve endplate remodeling with disc space narrowing, osteophytosis and Schmorl's node formation primaril y at C5-C6. There is multilevel facet arthropathy. No acute or subacute fracture is seen. There is no suspicious osseous lesion. At C2-C3, there is a shallow posterior central disc protrusion superimposed on endplate remodeling. T here is severe right facet arthropathy. There is minimal right foraminal stenosis. At C3-C4, there is a and shallow broad-based right paracentral to lateral recess disc protrusion supe rimposed on a disc bulge and endplate remodeling. There is moderate right and severe left facet arthr opathy. There is bilateral uncovertebral arthropathy. There is mild bilateral foraminal stenosis. At C4-C5, there is a disc bulge and endplate remodeling. There is mild right and severe left facet ar thropathy. There is left uncovertebral arthropathy. There is moderate left foraminal stenosis. At C5-C6, there is a disc bulge and endplate osteophytosis. There is mild bilateral facet arthropathy . There is bilateral uncovertebral arthropathy. There is severe right and moderate left foraminal coby nosis. At C6-C7, there is a disc bulge and endplate osteophytosis. There is mild bilateral facet arthropathy . There is bilateral uncovertebral arthropathy. There is moderate right foraminal stenosis. There is a calcified aortic arch and there are tortuous atherosclerotic arch great vessels. There is groundglass opacities scattered throughout the bilateral upper lobes. There is no neck lymphadenopath y. IMPRESSION: 1. Small acute subdural hematoma along the left cerebral convexity measuring 3 mm in thickness. There is no midline shift. 2. Slight hyperdensity within the right frontal extra-axial space likely due to a prominent cortical vessel and slight increased density along the falx and right tentorium likely due to prominent dural venous sinuses. No additional convincing acute extra-axial hematoma is seen. 3. Bilateral cerebral white changes, likely due to chronic small vessel disease. 4. Multilevel degenerative change involving the cervical and upper thoracic spine, described above. T his results in stenosis at multiple levels. There is no evidence of acute cervical trauma. 5. No evidence of acute maxillofacial bone trauma. Findings were discussed with Dr. Garza in the ED at 0826 hours on 09/07/2021. FOR INTERNAL CODING PURPOSES RESULT CODE: (C) Electronically signed by: Mague Huffman MD (09/07/2021 8:29 AM) [id number]
--- NOTE | 2021-09-07 08:48 | EKG ---
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
[2021-09-07 08:53] LABS: BASO % 0 % (0-3); EOS # 0.2 x10^3/uL (0.0-0.7); EOS % 2 % (0-3); HEMATOCRIT 35.9 % (39.0-53.0); HEMOGLOBIN 11.8 g/dL (13.0-17.5); LYMPH # 0.9 x10^3/uL (1.0-4.8); LYMPH % 11 % (24-48); MEAN CORPUSCULAR HEMOGLOBIN 31 pg (25-35); MEAN CORPUSCULAR HGB CONC 33 g/dL (31-37); MEAN CORPUSCULAR VOLUME 94 fL (79-100); MONO # 0.8 x10^3/uL (0.0-1.1); MONO % 9 % (0-9); NEUT # 6.6 x10^3uL (1.8-7.7); NEUT % 77 % (31-73); PLATELET COUNT 190 x10^3/uL (140-400); RED BLOOD COUNT 3.83 x10^6/uL (4.30-5.70); RED CELL DISTRIBUTION WIDTH 15.2 % (11.5-14.5); WHITE BLOOD COUNT 8.6 x10^3/uL (4.0-11.0)
[2021-09-07 09:09] LABS: BARBITURATES NEG (NEG); BENZODIAZEPINES NEG (NEG); CANNABINOIDS NEG (NEG); COCAINE NEG (NEG); METHADONE NEG (NEG); OPIATES NEG (NEG); PHENCYCLIDINE NEG (NEG)
[2021-09-07 09:12] LABS: AMPHETAMINE/METHAMPHETAMINE NEG (NEG)
[2021-09-07 09:28] LABS: BACTERIA,URINE 0 /HPF (0-FEW); BILIRUBIN,URINE NEG (NEG); CLARITY,URINE CLEAR; COLOR,URINE YELLOW; GLUCOSE,URINE NEG (NEG); NITRITE,URINE NEG (NEG); RBC,URINE OCC /HPF (0-2); UROBILINOGEN,URINE 0.2 mg/dL (0.2 mg/dL); WBC,URINE OCC /HPF (0-4)
[2021-09-07 10:25] LABS: ALBUMIN 3.2 g/dL (3.4-5.0); ALBUMIN/GLOBULIN RATIO 0.8 (1.0-1.7); CALCIUM 8.6 mg/dL (8.5-10.1); CREATININE 1.9 mg/dL (0.7-1.3); GFR 34.3; MAGNESIUM 2.1 mg/dL (1.8-2.4); POTASSIUM 3.5 mmol/L (3.5-5.1); TOTAL BILIRUBIN 0.8 mg/dL (0.2-1.0); TOTAL PROTEIN 7.2 g/dL (6.4-8.2)
[2021-09-07] MEDS ORDERED: DIPH,PERTUSS(ACELL),TET VAC/PF 0.5 ML SYRINGE. VAX IM ONE (13:30)
[2021-09-07 16:00] VITALS: BP 151/88
--- NOTE | 2021-09-07 16:31 | EKG ---
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
== END 2021-09-07 17:49 | disposition short-term general hospital (02) ==
LOC: ER 07:20
DX: S06.5X9A Traumatic subdural hemorrhage with loss of consciousness of unspecified duration, initial encounter (principal); S01.81XA Laceration without foreign body of other part of head, initial encounter; S80.812A Abrasion, left lower leg, initial encounter; K21.9 Gastro-esophageal reflux disease without esophagitis; E78.00 Pure hypercholesterolemia, unspecified; I12.9 Hypertensive chronic kidney disease with stage 1 through stage 4 chronic kidney disease, or unspecified chronic kidney disease; N18.9 Chronic kidney disease, unspecified; E11.22 Type 2 diabetes mellitus with diabetic chronic kidney disease; Z20.822 Contact with and (suspected) exposure to COVID-19; Z87.891 Personal history of nicotine dependence; Z94.0 Kidney transplant status; W18.09XA Striking against other object with subsequent fall, initial encounter; Y93.89 Activity, other specified; Y92.89 Other specified places as the place of occurrence of the external cause; Y99.8 Other external cause status
CPT/HCPCS: 36415; 70450; 70486; 71045; 72125; 80053; 80307; 81001; 82550; 83690; 83735; 84484; 85025; 85610; 85730; 87426; 90471; 90715; 93005; 96360; 96361; 99291; 99292; J7030; U0003; 99285-25

== ENCOUNTER → 2021-12-19 | Outpatient (CLI) | payer MEDICARE, OTHER ==
[2021-12-19 08:44] LABS: BASO % 1 % (0-3); EOS # 0.2 x10^3/uL (0.0-0.7); EOS % 3 % (0-3); HEMATOCRIT 36.8 % (39.0-53.0); HEMOGLOBIN 11.8 g/dL (13.0-17.5); LYMPH % 16 % (24-48); MEAN CORPUSCULAR HEMOGLOBIN 30 pg (25-35); MEAN CORPUSCULAR HGB CONC 32 g/dL (31-37); MEAN CORPUSCULAR VOLUME 93 fL (79-100); MONO # 0.6 x10^3/uL (0.0-1.1); MONO % 10 % (0-9); NEUT # 4.7 x10^3uL (1.8-7.7); NEUT % 71 % (31-73); PLATELET COUNT 227 x10^3/uL (140-400); RED BLOOD COUNT 3.96 x10^6/uL (4.30-5.70); RED CELL DISTRIBUTION WIDTH 15.2 % (11.5-14.5); WHITE BLOOD COUNT 6.6 x10^3/uL (4.0-11.0)
[2021-12-19 09:13] LABS: ALBUMIN 3.2 g/dL (3.4-5.0); ALBUMIN/GLOBULIN RATIO 0.8 (1.0-1.7); CALCIUM 8.5 mg/dL (8.5-10.1); CREATININE 2.1 mg/dL (0.7-1.3); GFR 30.5; MAGNESIUM 2.3 mg/dL (1.8-2.4); PHOSPHORUS 3.2 mg/dL (2.6-4.7); POTASSIUM 4.5 mmol/L (3.5-5.1); TOTAL BILIRUBIN 0.5 mg/dL (0.2-1.0); TOTAL PROTEIN 7.2 g/dL (6.4-8.2)
== END ==
LOC: LAB 08:14
PROVIDERS: ATTEND Internal Medicine
DX: E83.30 Disorder of phosphorus metabolism, unspecified (principal); E83.40 Disorders of magnesium metabolism, unspecified; Z94.0 Kidney transplant status; Z79.899 Other long term (current) drug therapy
CPT/HCPCS: 36415; 80053; 80197; 83615; 83735; 84100; 85025

== ENCOUNTER → 2022-01-16 | Outpatient (CLI) | payer MEDICARE ==
[2022-01-16 08:39] LABS: BASO % 1 % (0-3); EOS # 0.1 x10^3/uL (0.0-0.7); EOS % 2 % (0-3); HEMATOCRIT 36.8 % (39.0-53.0); HEMOGLOBIN 11.8 g/dL (13.0-17.5); LYMPH # 1.1 x10^3/uL (1.0-4.8); LYMPH % 19 % (24-48); MEAN CORPUSCULAR HEMOGLOBIN 30 pg (25-35); MEAN CORPUSCULAR HGB CONC 32 g/dL (31-37); MEAN CORPUSCULAR VOLUME 93 fL (79-100); MONO # 0.6 x10^3/uL (0.0-1.1); MONO % 10 % (0-9); NEUT % 69 % (31-73); PLATELET COUNT 207 x10^3/uL (140-400); RED BLOOD COUNT 3.97 x10^6/uL (4.30-5.70); RED CELL DISTRIBUTION WIDTH 15.7 % (11.5-14.5); WHITE BLOOD COUNT 5.9 x10^3/uL (4.0-11.0)
[2022-01-16 08:44] LABS: ALBUMIN 3.3 g/dL (3.4-5.0); ALBUMIN/GLOBULIN RATIO 0.9 (1.0-1.7); CALCIUM 8.4 mg/dL (8.5-10.1); CREATININE 2.3 mg/dL (0.7-1.3); GFR 27.5; PHOSPHORUS 4.2 mg/dL (2.6-4.7); POTASSIUM 4.2 mmol/L (3.5-5.1); TOTAL BILIRUBIN 0.5 mg/dL (0.2-1.0)
== END ==
LOC: LAB 08:13
PROVIDERS: ATTEND Internal Medicine
DX: E83.30 Disorder of phosphorus metabolism, unspecified (principal); E83.40 Disorders of magnesium metabolism, unspecified; Z94.0 Kidney transplant status; Z79.899 Other long term (current) drug therapy
CPT/HCPCS: 80053; 80197; 83615; 83735; 84100; 85025

== ENCOUNTER → 2022-02-26 | Outpatient (CLI) | payer MEDICARE ==
[2022-02-26 08:39] LABS: BASO % 0 % (0-3); EOS # 0.2 x10^3/uL (0.0-0.7); EOS % 3 % (0-3); HEMATOCRIT 36.4 % (39.0-53.0); HEMOGLOBIN 11.7 g/dL (13.0-17.5); LYMPH % 16 % (24-48); MEAN CORPUSCULAR HEMOGLOBIN 30 pg (25-35); MEAN CORPUSCULAR HGB CONC 32 g/dL (31-37); MEAN CORPUSCULAR VOLUME 94 fL (79-100); MONO # 0.6 x10^3/uL (0.0-1.1); MONO % 10 % (0-9); NEUT # 4.3 x10^3uL (1.8-7.7); NEUT % 71 % (31-73); PLATELET COUNT 203 x10^3/uL (140-400); RED BLOOD COUNT 3.88 x10^6/uL (4.30-5.70); RED CELL DISTRIBUTION WIDTH 16.2 % (11.5-14.5)
[2022-02-26 08:58] LABS: ALBUMIN 3.4 g/dL (3.4-5.0); CALCIUM 8.6 mg/dL (8.5-10.1); CREATININE 2.2 mg/dL (0.7-1.3); GFR 28.9; MAGNESIUM 2.2 mg/dL (1.8-2.4); PHOSPHORUS 3.7 mg/dL (2.6-4.7); POTASSIUM 4.7 mmol/L (3.5-5.1); TOTAL BILIRUBIN 0.6 mg/dL (0.2-1.0); TOTAL PROTEIN 6.7 g/dL (6.4-8.2)
== END ==
LOC: LAB 07:52
PROVIDERS: ATTEND Internal Medicine
DX: E83.30 Disorder of phosphorus metabolism, unspecified (principal); E83.40 Disorders of magnesium metabolism, unspecified; Z79.899 Other long term (current) drug therapy; Z94.0 Kidney transplant status
CPT/HCPCS: 80053; 80197; 83615; 83735; 84100; 85025

== ENCOUNTER → 2022-04-02 | Outpatient (CLI) | payer MEDICARE ==
[2022-04-02 08:12] LABS: BASO % 1 % (0-3); EOS # 0.2 x10^3/uL (0.0-0.7); EOS % 4 % (0-3); HEMATOCRIT 34.2 % (39.0-53.0); LYMPH # 1.1 x10^3/uL (1.0-4.8); LYMPH % 19 % (24-48); MEAN CORPUSCULAR HEMOGLOBIN 31 pg (25-35); MEAN CORPUSCULAR HGB CONC 32 g/dL (31-37); MEAN CORPUSCULAR VOLUME 96 fL (79-100); MONO # 0.6 x10^3/uL (0.0-1.1); MONO % 11 % (0-9); NEUT # 3.7 x10^3uL (1.8-7.7); NEUT % 66 % (31-73); PLATELET COUNT 203 x10^3/uL (140-400); RED BLOOD COUNT 3.58 x10^6/uL (4.30-5.70); RED CELL DISTRIBUTION WIDTH 15.6 % (11.5-14.5); WHITE BLOOD COUNT 5.6 x10^3/uL (4.0-11.0)
[2022-04-02 08:54] LABS: CALCIUM 8.6 mg/dL (8.5-10.1); CREATININE 2.3 mg/dL (0.7-1.3); GFR 27.5; MAGNESIUM 2.1 mg/dL (1.8-2.4); PHOSPHORUS 3.6 mg/dL (2.6-4.7); POTASSIUM 4.7 mmol/L (3.5-5.1); TOTAL BILIRUBIN 0.4 mg/dL (0.2-1.0); TOTAL PROTEIN 6.1 g/dL (6.4-8.2)
== END ==
LOC: LAB 07:51
PROVIDERS: ATTEND Internal Medicine
DX: E83.30 Disorder of phosphorus metabolism, unspecified (principal); E83.40 Disorders of magnesium metabolism, unspecified; Z79.899 Other long term (current) drug therapy; Z94.0 Kidney transplant status
CPT/HCPCS: 80053; 80197; 83615; 83735; 84100; 85025

== ENCOUNTER 2022-04-07 05:10 | Emergency (ER) | payer MEDICARE ==
[~2022-04-07] VITALS: Ht 165.1 cm; Wt 86.6 kg
[2022-04-07 05:24] VITALS: BP 185/106
--- NOTE | 2022-04-07 05:54 | PHYS DOC ---
Past History Past Medical History: Diabetes, GERD, High Cholesterol, Hypertension, Renal Failure Additional Past Medical Histor: COVID 19 hospitalized for two months, POTS Past Surgical History: Knee Replacement Additional Past Surgical Histo: kidnet transplant "bile duct work" Smoking: Quit Greater Than 1 Year Alcohol Use: None Drug Use: None General Adult EDM: Chief Complaint: LACERATION/AVULSION HPI: HPI: 81-year-old male presents with right ear lacerations. The patient fell out of bed and struck his ear on the nightstand. Patient denies loss of consciousness. He has no neck pain. He has no other complaints at this time. Review of Systems: Review of Systems: Constitutional: Denies fever or chills Eyes: Denies change in visual acuity HENT: Denies nasal congestion or sore throat Respiratory: Denies cough or shortness of breath Cardiovascular: Denies chest pain or edema GI: Denies abdominal pain, nausea, vomiting, bloody stools or diarrhea : Denies dysuria Musculoskeletal: Denies back pain or joint pain Integument: Laceration right ear Neurologic: Denies headache, focal weakness or sensory changes Endocrine: Denies polyuria or polydipsia Lymphatic: Denies swollen glands Psychiatric: Denies depression or anxiety Allergies: Allergies: Allergies Coded Allergies Type Severity Reaction Last Updated Verified Penicillins Allergy Intermediate 04/07/22 Yes promethazine HCl Allergy Intermediate 04/07/22 Yes Physical Exam: PE: Constitutional: Well developed, well nourished, no acute distress, non-toxic appearance. [] HENT: Normocephalic, atraumatic, bilateral external ears normal, oropharynx moist, no oral exudates, nose normal. [] Eyes: PERRLA, EOMI, conjunctiva normal, no discharge. [] Neck: Normal range of motion, no tenderness, supple, no stridor. [] Cardiovascular:Heart rate regular rhythm, no murmur [] Lungs & Thorax: Bilateral breath sounds clear to auscultation [] Abdomen: Bowel sounds normal, soft, no tenderness, no masses, no pulsatile m asses. [] Skin: Laceration of the inferior earlobe of the right ear. Second laceration of the upper inner part of the ear. [] Back: No tenderness, no CVA tenderness. [] Extremities: No tenderness, no cyanosis, no clubbing, ROM intact, no edema. [] Neurologic: Alert and oriented X 3, normal motor function, normal sensory function, no focal deficits noted. [] Psychologic: Affect normal, judgement normal, mood normal. [] Current Patient Data: Vital Signs: Vital Signs Date Time Temp Pulse Resp B/P (MAP) Pulse Ox O2 Delivery O2 Flow Rate FiO2 04/07/22 05:24 98.0 60 18 185/106 (132) 98 Room Air EKG: EKG: [] Radiology/Procedures: Radiology/Procedures: [] Heart Score: C/O Chest Pain: N/A Risk Factors: Risk Factors: DM, Current or recent (<one month) smoker, HTN, HLP, family history of CAD, obesity. Risk Scores: Score 0 - 3: 2.5% MACE over next 6 weeks - Discharge Home Score 4 - 6: 20.3% MACE over next 6 weeks - Admit for Clinical Observation Score 7 - 10: 72.7% MACE over next 6 weeks - Early Invasive Strategies Course & Med Decision Making: Course & Med Decision Making Pertinent Labs and Imaging studies reviewed. (See chart for details) I am signing the patient out to the dayshift at 0600. [] Dragon Disclaimer: Dragon Disclaimer: This electronic medical record was generated, in whole or in part, using a voice recognition dictation system. Departure Departure: Referrals: DWAYNE ASENCIO MD (PCP) IMELDA VERNON DO April 07, 2022 05:54
[2022-04-07] MEDS ORDERED: LIDOCAINE 2% 20 ML VIAL. ONE (06:21)
[2022-04-07] MEDS ORDERED: LIDOCAINE 2% 20 ML VIAL. SQ ONE (07:00)
--- NOTE | 2022-04-07 07:08 | PHYS DOC ---
Past History Past Medical History: Diabetes, GERD, High Cholesterol, Hypertension, Renal Failure Additional Past Medical Histor: COVID 19 hospitalized for two months, POTS Past Surgical History: Knee Replacement Additional Past Surgical Histo: kidnet transplant "bile duct work" Smoking: Quit Greater Than 1 Year Alcohol Use: None Drug Use: None Adult General Chief Complaint Chief Complaint: LACERATION/AVULSION HPI HPI I assumed care of the patient at [address] Pollard. Patient awaiting laceration repair. Review of Systems Review of Systems Current Medications Current Medications Current Medications Medications (Trade) Dose Ordered Sig/Zaki Start Time Stop Time Status Last Admin Dose Admin Lidocaine HCl (Lidocaine 2%) 20 ml 1X ONCE 04/07/22 07:00 04/07/22 07:01 04/07/22 06:44 20 ML Allergies Allergies Allergies Coded Allergies Type Severity Reaction Last Updated Verified Penicillins Allergy Intermediate 04/07/22 Yes promethazine HCl Allergy Intermediate 04/07/22 Yes Physical Exam Physical Exam Current Patient Data Vital Signs Vital Signs Date Time Temp Pulse Resp B/P (MAP) Pulse Ox O2 Delivery O2 Flow Rate FiO2 04/07/22 05:24 98.0 60 18 185/106 (132) 98 Room Air EKG EKG [] Radiology/Procedures Radiology/Procedures [] Laceration repair Right earlobe near full avulsion laceration, 2 cm near circumferential. Stellate in appearance. Approximated with 4-0 nylon, 10 total sutures approximating stellate complex laceration. Simple interrupted suture technique, well approximated, tolerated well Right pinna laceration, 1 cm in length, shallow. Approximated with 4-0 nylon sutures, 3 total sutures, simple interrupted technique. Tolerated well Heart Score C/O Chest Pain: No Risk Factors: Risk Factors: DM, Current or recent (<one month) smoker, HTN, HLP, family history of CAD, obesity. Risk Scores: Risk Factors: DM, Current or recent (<one month) smoker, HTN, HLP, family history of CAD, obesity. Course & Med Decision Making Course & Med Decision Making Patient laceration repaired as above. Otherwise no complaints, no headaches, no neck pain, no other areas of injury reported. Patient counseled as to wound care and return precautions. [] Dragon Disclaimer Dragon Disclaimer This electronic medical record was generated, in whole or in part, using a voice recognition dictation system. Departure Departure: Impression: Primary Impression: Laceration of ear, external, right, complicated Disposition: 01 HOME / SELF CARE / HOMELESS Condition: GOOD Referrals: DWAYNE ASENCIO MD (PCP) Patient Instructions: Laceration Care, Adult Additional Instructions: Keep area clean and dry. Apply triple antibiotic ointment to the area daily. Return to the emergency department in 10 days time for suture removal. Return sooner for any redness, swelling, concerns for infection PURNIMA HOBBS MD April 07, 2022 07:08
== END 2022-04-07 07:15 | disposition home or self-care (01) ==
LOC: ER 05:10
DX: S01.311A Laceration without foreign body of right ear, initial encounter (principal); E11.9 Type 2 diabetes mellitus without complications; K21.9 Gastro-esophageal reflux disease without esophagitis; E78.00 Pure hypercholesterolemia, unspecified; I12.9 Hypertensive chronic kidney disease with stage 1 through stage 4 chronic kidney disease, or unspecified chronic kidney disease; N18.9 Chronic kidney disease, unspecified; Z87.891 Personal history of nicotine dependence; Z88.0 Allergy status to penicillin; Z88.8 Allergy status to other drugs, medicaments and biological substances; W06.XXXA Fall from bed, initial encounter; Y93.89 Activity, other specified; Y92.89 Other specified places as the place of occurrence of the external cause; Y99.8 Other external cause status
CPT/HCPCS: 12013; 99283; J2001; 99282

== ENCOUNTER 2022-04-17 15:25 | Emergency (ER) | payer MEDICARE ==
[~2022-04-17] VITALS: Ht 165.1 cm; Wt 88.5 kg
[2022-04-17 15:50] VITALS: BP 141/87
--- NOTE | 2022-04-17 16:12 | PHYS DOC ---
Past History Past Medical History: Diabetes, GERD, High Cholesterol, Hypertension, Renal Failure Additional Past Medical Histor: COVID 19 hospitalized for two months, POTS (SHRADDHA DUONG APRN) Past Surgical History: Knee Replacement Additional Past Surgical Histo: kidnet transplant "bile duct work" (SHRADDHA DUONG APRN) Smoking: Quit Greater Than 1 Year Alcohol Use: None Drug Use: None (SHRADDHA DUONG APRN) General Adult EDM: Chief Complaint: SUTURE/STAPLE REMOVAL HPI: HPI: Male who presents to the emergency department for suture removal. Patient was seen in this emergency department on April 07 and had 16 sutures placed in his right ear. Denies any complaints. (SHRADDHA DUONG APRN) Review of Systems: Review of Systems: Constitutional: Denies fever or chills Eyes: Denies change in visual acuity HENT: Denies nasal congestion or sore throat Respiratory: Denies cough or shortness of breath Cardiovascular: Denies chest pain or edema GI: Denies abdominal pain, nausea, vomiting, bloody stools or diarrhea : Denies dysuria Musculoskeletal: Denies back pain or joint pain Integument: See HPI Neurologic: Denies headache, focal weakness or sensory changes Endocrine: Denies polyuria or polydipsia Lymphatic: Denies swollen glands Psychiatric: Denies depression or anxiety (SHRADDHA DUONG APRN) Allergies: Allergies: Allergies Coded Allergies Type Severity Reaction Last Updated Verified Penicillins Allergy Intermediate 04/07/22 Yes promethazine HCl Allergy Intermediate 04/07/22 Yes (SHRADDHA DUONG APRN) Physical Exam: PE: Constitutional: Well developed, well nourished, no acute distress, non-toxic appearance. [] HENT: Normocephalic, atraumatic, bilateral external ears normal, oropharynx moist, no oral exudates, nose normal. [] Eyes: PERRLA, EOMI, conjunctiva normal, no discharge. [] Neck: Normal range of motion, no tenderness, supple, no stridor. [] Cardiovascular:Heart rate regular rhythm, no murmur [] Lungs & Thorax: Bilateral breath sounds clear to auscultation [] Abdomen: Bowel sounds normal, soft, no tenderness, no masses, no pulsatile masses. [] Skin: Warm, dry, no erythema, no rash. [] Back: No tenderness, no CVA tenderness. [] Extremities: No tenderness, no cyanosis, no clubbing, ROM intact, no edema. [] Neurologic: Alert and oriented X 3, normal motor function, normal sensory func tion, no focal deficits noted. [] Psychologic: Affect normal, judgement normal, mood normal. [] (SHRADDHA DUONG APRN) EKG: EKG: [] (SHRADDHA DUONG APRN) Radiology/Procedures: Radiology/Procedures: [] (SHRADDHA DUONG APRN) Heart Score: C/O Chest Pain: N/A Risk Factors: Risk Factors: DM, Current or recent (<one month) smoker, HTN, HLP, family history of CAD, obesity. Risk Scores: Score 0 - 3: 2.5% MACE over next 6 weeks - Discharge Home Score 4 - 6: 20.3% MACE over next 6 weeks - Admit for Clinical Observation Score 7 - 10: 72.7% MACE over next 6 weeks - Early Invasive Strategies (SHRADDHA DUONG APRN) Course & Med Decision Making: Course & Med Decision Making Pertinent Labs and Imaging studies reviewed. (See chart for details) [] Patient presents to the emergency department for suture removal. Patient had 16 sutures placed on April 07. There is significant amount of dried blood to the area this was cleansed in the emergency department and sutures removed. Patient tolerated procedure. Patient educated on wound care. I discussed with patient all findings and diagnostic testing as well as the need to follow-up with PCP for further evaluation and treatment or return to the ER if any new or worsening symptoms. Strict return precautions were also discussed at length. Patient voiced understanding and agreement with the plan. Patient is hemodynamically stable at the time of disposition. (SHRADDHA DUONG APRN) Dragon Disclaimer: Dragon Disclaimer: This electronic medical record was generated, in whole or in part, using a voice recognition dictation system. (SHRADDHA DUONG APRN) Attending Co-Sign The patient was seen and interviewed as well as examined at the bedside. The chart was reviewed. The case was discussed. Agree with the plan of care. (IMELDA VERNON DO) Departure Departure: Impression: Primary Impression: Visit for suture removal Disposition: HOME / SELF CARE / HOMELESS Condition: GOOD Referrals: DWAYNE ASENCIO MD (PCP) Patient Instructions: Suture Removal Additional Instructions: You were seen in the emergency department for suture removal. Please keep this area clean and dry. Monitor for any signs of infection like redness, warmth, swelling or drainage. You can apply Polysporin or bacitracin ointment to the site. Keep the dressing in place. Follow-up with your primary care provider as needed. SHRADDHA DUONG APRN April 17, 2022 16:12 IMELDA VERNON DO April 18, 2022 07:28
== END 2022-04-17 17:18 | disposition home or self-care (01) ==
LOC: ER 15:25
DX: S01.311D Laceration without foreign body of right ear, subsequent encounter (principal); E11.9 Type 2 diabetes mellitus without complications; K21.9 Gastro-esophageal reflux disease without esophagitis; E78.00 Pure hypercholesterolemia, unspecified; I12.9 Hypertensive chronic kidney disease with stage 1 through stage 4 chronic kidney disease, or unspecified chronic kidney disease; N18.9 Chronic kidney disease, unspecified; E11.22 Type 2 diabetes mellitus with diabetic chronic kidney disease; Z87.891 Personal history of nicotine dependence; Z88.0 Allergy status to penicillin; Z88.8 Allergy status to other drugs, medicaments and biological substances; X58.XXXD Exposure to other specified factors, subsequent encounter
CPT/HCPCS: 99281